=== PATIENT | male | born 1970 | race Caucasian/White ===

== ENCOUNTER → 2017-04-10 12:02 | Outpatient (CLI) | payer BC, SELFPAY ==
[2017-04-10 14:27] LABS: Absolute Lymphocyte Count 1.49 X10^3/ul (0.83-4.51); Absolute Neutrophil Count 3.4 X10^3/uL (2.0-7.7); Basophil# 0.01 X10^3/uL; Basophil% 0.2 % (0-1); Eosinophils% 1.8 % (0-5); Hematocrit 51.1 % (40-54); Hemoglobin 17.1 g/dl (13.0-16.5); Lymphocyte # 1.49 X10^3/ul (4.0); Lymphocyte % 27.5 % (19-41); Mean Corp Hgb Conc 33.5 g/gl (32-36); Mean Corpuscular Hgb 32.9 pg (27.0-32.0); Mean Corpuscular Volume 98.5 fL (80-94); Mean Platelet Vol. 9.3 fl (6.2-12.0); Monocyte# 0.44 X10^3/uL; Monocyte% 8.1 % (0-10); Neutrophil # 3.36 X10^3/uL (2.7-7.7); Platelet Count 287 K/mm3 (150-450); RBC Distribution Width CV 12.5 % (11.6-14.6); RBC Distribution Width SD 45.4 fl (35.1-43.9); Red Blood Count 5.19 M/mm3 (4.6-6.2); White Blood Count 5.4 K/mm3 (4.4-11.0)
[2017-04-10 14:32] LABS: POSITIVE COUNT NO; POSITIVE DIFFERENTIAL NO; POSITIVE MORPHOLOGY NO
[2017-04-10 14:38] LABS: ALB/GLOB Ratio 1.1 RATIO (0.9-2.4); AST(SGOT) 21 U/L (15-37); Alanine Aminotransfer ALT/SGPT 47 U/L (16-61); Alkaline Phosphatase 89 U/L (45-117); Anion Gap 7 (5-15); BUN 15 mg/dL (7-18); BUN/Creat Ratio 17.3 RATIO (10-20); Calcium,Total 9.4 mg/dL (8.5-10.1); Chloride 101 mmol/L (98-107); Creatinine, Serum 0.87 mg/dL (0.70-1.30); EST Glomerular Filtration Rate 100 mL/min (>60); Est Glom Filt Rate - Afr Amer 121 mL/min (>60); Globulin 3.8 g/dL (2.2-4.2); Glucose 98 mg/dL (74-106); Potassium 3.8 mmol/L (3.5-5.1); Protein, Total 7.8 g/dL (6.4-8.2); Sodium Level 138 mmol/L (136-145)
[2017-04-10 14:49] LABS: Erythrocyte Sedimentation Rate 9 mm/hr (0-15)
[2017-04-14 11:54] LABS: V-Zoster Virus Acute IgM < 0.91 index (0.00-0.90)
== END ==
PROVIDERS: Family Provider Family Medicine; PCP Family Medicine; Visit Provider Dermatology Pediatric Dermatology
DX: L90.5 Scar conditions and fibrosis of skin (principal); L98.8 Other specified disorders of the skin and subcutaneous tissue; B01.9 Varicella without complication; R52 Pain, unspecified; L73.2 Hidradenitis suppurativa
CPT/HCPCS: 36415; 80053; 85025; 85652; 86038; 86787

== ENCOUNTER → 2017-09-14 13:54 | Outpatient (CLI) | payer BC, SELFPAY ==
--- NOTE | 2017-09-14 14:05 | RAD_ITS ---
STUDY: X-RAY - ABDOMEN/PELVIS REASON FOR EXAM: Male, 46 years old. checking for stones patient in pain history of stones about 3 years ago and had removed TECHNIQUE: Two AP supine views of the abdomen and pelvis. COMPARISON: CT May 30, 2015 FINDINGS: There is an unremarkable bowel gas pattern. There is no demonstrated free abdominal air. The visualized liver, spleen and kidneys are grossly normal in size and morphology. Normal soft tissue structures. Normal visualized osseous structures. RAD/Abdomen Single View IMPRESSION: No renal stone is demonstrated. Electronically Signed: Sarah Hill MD at 11:54 EDT , Service support ,
== END ==
PROVIDERS: Family Provider Family Medicine; PCP Family Medicine; Visit Provider Urology
DX: Z87.442 Personal history of urinary calculi (principal)
CPT/HCPCS: 74018

== ENCOUNTER → 2018-08-30 07:51 | Outpatient (CLI) | payer BC, SELFPAY ==
--- NOTE | 2018-08-30 08:02 | MRI_ITS ---
STUDY: MRI RIGHT KNEE REASON FOR EXAM: Swelling, knee popped, history of ACL repair. TECHNIQUE: Standardized fat and water weighted pulse sequences were obtained in all 3 orthogonal planes. COMPARISON: Radiographs 10/24/2016. FINDINGS: There is attrition of the free margin of the posterior horn of the medial meniscus suggestive of partial medial meniscectomy with irregularity of the free margin (series 4 images 16, 17; proton density sagittal images 27, 28) suggestive of recurrent medial meniscal tear. There is also a complex signal alteration of the body of the medial meniscus (proton density coronal images 13, 14) suggestive of recurrent medial meniscal tear since this is separate from the partial meniscectomy site. Normal hyaline cartilage of the medial femorotibial compartment. Normal medial femoral condyle and tibial plateau. Normal medial collateral ligamentous complex (MCL). Normal distal semimembranosus, gracilis and semitendinosus tendons. Normal lateral meniscus. Normal hyaline cartilage of the lateral femorotibial compartment. Normal lateral femoral condyle and tibial plateau. Normal proximal tibiofibular articulation. Normal lateral collateral (fibular) ligament. Normal popliteus tendon. Normal biceps femoris tendon. The anterior cruciate ligament graft is intact (series 6 image 13). Normal posterior cruciate ligament (PCL). Normal congruent patellofemoral articulation. Normal hyaline cartilage of the patellofemoral compartment. Normal medial and lateral patellar retinaculum. Normal quadriceps tendon. There are postoperative changes of the patellar tendon. There is postoperative scarring in Hoffa's fat pad. There is a small joint effusion. There is a mildly thickened medial patellar plica (series 4 images 17, 18). There is a small popliteal cyst (series 4 images 16, 17). There is mild edema in the subcutis adipose space. There are postoperative changes in the distal femur and proximal tibia from anterior cruciate ligament reconstruction. MRI/Lower Ext Joint Only (Routine) IMPRESSION: Partial medial meniscectomy with recurrent medial meniscal tear. Intact anterior cruciate ligament graft. Small joint effusion. Small popliteal cyst. Mildly thickened medial patellar plica. Electronically Signed: Gelacio Che MD at 9:44 EDT Tel , Service support ,
== END ==
PROVIDERS: Family Provider Family Medicine; PCP Family Medicine; Referring Provider Physician Assistant; Visit Provider Physician Assistant
DX: M17.11 Unilateral primary osteoarthritis, right knee (principal)
CPT/HCPCS: 73721

== ENCOUNTER 2019-04-25 13:25 | Emergency (ER) | payer BC, SELFPAY ==
[2019-04-25 13:25] VITALS: BP 150/103; PULSE 118; RESP 20; TEMP 36.2; O2SAT 96; BMI 34.2
[2019-04-25 13:27] VITALS: BP 150/103; PULSE 118; RESP 20; TEMP 36.2; O2SAT 96
[2019-04-25 13:34] VITALS: O2SAT 97
--- NOTE | 2019-04-25 13:35 | RAD_ITS ---
STUDY: X-RAY CHEST REASON FOR EXAM: Male, 48 years old. Cough, shortness of breath, difficulty breathing TECHNIQUE: PA and lateral views of the chest. COMPARISON: None. FINDINGS: EKG electrodes are seen. There is a mild degree of vascular congestion with increased interstitial markings. Blunting of both costophrenic angles worse on the right side. This is suggestive of a mild CHF. There is mild cardiac enlargement. Normal mediastinum and karen. Normal visualized pulmonary arteries. Normal visualized aortic arch and descending thoracic aorta. Normal visualized thoracic spine. Normal visualized ribs, clavicles, and shoulders. There is no demonstrated abnormality of the visualized soft tissue structures of the upper abdomen. RAD/Chest PA and Lateral IMPRESSION: Mouth cardiomegaly with findings suggestive of mild degree of CHF. Electronically Signed: Radu Gilbert, at 14:17 EDT , Service support ,
--- NOTE | 2019-04-25 13:37 | ED.DCSUM_ITS ---
History of Present Illness Chief Complaint: Cough Informant: Patient, Significant Other Onset: Weeks Context: Sudden Onset Timing: Continuous Quality: Cough, shortness of breath and wheezing Location: upper respiratory Current Severity: Mild Maximum Severity: Moderate Worsened by: Activity and coughing Relieved by: Nothing Associated Symptoms: Nasal congestion, postnasal drainage malaise Narrative: Patient is a 48-year-old male with no significant past medical history who presents with upper respiratory victims that started 1 week ago. He denies fever. Does complain of congestion with postnasal drainage and nonproductive cough. He reports shortness of breath worse with activity and wheezing. He has no history of asthma. He quit smoking 2 years ago. He has no other complaints. He denies any ill contacts. Prior similar symptoms: No Recent Illness/Hospitalization: No - Past Medical History (1) No significant past medical history Status: Acute Past Medical History - Allergies and Home Meds Allergies/Adverse Reactions: Allergies No Known Allergies Allergy (Verified 04/25/19 13:27) Primary Care Physician: Lashell Diallo [Primary Care Provider] - Prior records reviewed: Yes Surgical History: no surgical history Lives: Spouse/ Significant Other, With Family Smoking Status: Former smoker Alcohol: None Drugs: None Review of Systems General: Reports: Malaise. Denies: Chills, Fever, Subjective, Sweats Eyes: Denies: Visual changes - bilaterally, Blurred Vision - bilaterally ENT: Reports: Rhinorrhea. Denies: Sore throat Cardiovascular: Reports: Chest pain - Pain with coughing. Denies: Palpitations Respiratory: Reports: Dyspnea, Cough, Dyspnea on exertion. Denies: Sputum, Orthopnea, Paroxysmal nocturnal dyspnea Gastrointestinal: Denies: Abdominal pain, Nausea, Vomiting, Diarrhea, Melena, Hematochezia Genitourinary: Denies: Dysuria, Hematuria, Frequency Musculoskeletal: Denies: Myalgias, Arthralgias, Neck pain, Back pain, Swelling, Extremity Pain, -, - Neurological: Denies: Headache, Weakness, Numbness Hematologic: Denies: Easy bruising, Easy bleeding Physical Exam Vital Signs/Narrative: Vital Signs Temp Pulse Resp BP Pulse Ox 04/25/19 13:27 97.2 F L 118 H 20 H 150/103 H 96 04/25/19 13:25 97.2 F L 118 H 20 H 150/103 H 96 Inital Vital Signs reviewed: Yes General: Well nourished, Well developed, No Acute Distress Head: Normocephalic, Atraumatic Eyes: Perrl, EOMI. Negative for: Pale conjunctiva, Scleral icterus ENT: Moist mucous membranes, No rhinorrhea Neck: Supple, Nontender, No lymphadenopathy, No JVD Cardiovascular: Regular rhythm, No murmurs, Normal S1, Normal S2, Tachycardia Respiratory: Chest nontender, Wheezing, Decreased Air Movement. Negative for: No distress, CTA bilaterally, Retractions Abdomen: Soft, Nontender, Nondistended, Normal bowel sounds Back: Nontender, Normal Inspection Extremities: Nontender, No edema Skin: Normal color, No rash, No Trauma. Negative for: Cyanosis, Diaphoresis, Jaundice Neurological: Alert, Oriented x3, Cranial nerves II-XII grossly intact, Normal Strength, Normal Sensation Psychological: Normal affect, Normal Mood Diagnostic/Tx/Re-eval Chest X-Ray - ED: 2 View, Read by ED Physician, Normal, Heart, Mediastinum, Bony Structures, No Acute Disease, Chronic Changes, - - There is slight increased markings right side compared to left. Cardiac silhouette is normal. Cardiac size is normal. 04/25/19 13:35 Chest PA and Lateral [RAD] Stat 04/25/19 13:41 Mucosa - Nose Influenza Types A,B Direct FA (JOHN) - Final Laboratory Results 04/25/19 04/25/19 13:47 13:47 WBC 5.6 RBC 5.19 Hgb 16.6 H Hct 51.1 MCV 98.5 H MCH 32.0 MCHC 32.5 RDW Std Deviation 43.9 RDW Coeff of Joi 12.1 Plt Count 252 MPV 9.1 Immature Gran % (Auto) 0.400 Neut % (Auto) 65.9 Lymph % (Auto) 25.5 [place] % (Auto) 6.6 Eos % (Auto) 1.4 Baso % (Auto) 0.2 Absolute Neuts (auto) 3.7 Absolute Lymphs (auto) 1.43 Nucleated RBC % 0 Sodium 140 Potassium 4.5 Chloride 108 H Carbon Dioxide 27.0 Anion Gap 5 BUN 22 H Creatinine 0.99 Estim Creat Clear Calc 84.39 Est GFR (MDRD) Af Amer 104 Est GFR (MDRD) Non-Af 86 BUN/Creatinine Ratio 22.3 H Glucose 151 H Calcium 8.9 - Medical Decision Making Patient presents with respiratory symptoms started 1 week ago. He appears tachypneic is tachycardic. He is not hypoxic. Chest x-ray was obtained to assess for pneumonia. Since he is wheezing he was treated albuterol and prednisone. He has symptoms consistent with viral infection. Influenza screen was obtained. There is no risk or concern for COVID-19 Patient was reassessed at 1415. He is no longer wheezing. Heart rate is improved. He reports feeling better. ED Disposition - Plan for ED Patient: Disposition: Home or Assisted Living Diagnosis: Acute bronchospasm due to viral infection Instructions: BRONCHITIS with Wheezing (Adult) Prescriptions: Prednisone [Deltasone] 40 mg PO DAILY #10 tab Prescription Printed Albuterol Inhaler [Ventolin Hfa] 2 puff INHALATION Q4H PRN PRN #1 inhaler PRN Reason: Wheezing Prescription Printed Referrals: Lashell Diallo [Primary Care Provider] - 1 Week if not improving
[2019-04-25] MEDS: predniSONE 20 MG Tablet 60 MG PO (13:43)
[2019-04-25] MEDS: Albuterol 2.5 MG/3 ML VIAL.NEB. INHALATION ×3 (13:43→14:34)
[2019-04-25 13:57] LABS: Absolute Lymphocyte Count 1.43 X10^3/uL (0.83-4.51); Absolute Neutrophil Count 3.7 X10^3/uL (2.0-7.7); Basophil# 0.01 X10^3/uL; Basophil% 0.2 % (0-1); Eosinophil# 0.08 X10^3/uL; Eosinophils% 1.4 % (0-5); Hematocrit 51.1 % (40-54); Hemoglobin 16.6 g/dL (13.0-16.5); Lymphocyte # 1.43 X10^3/ul (4.0); Lymphocyte % 25.5 % (19-41); Mean Corp Hgb Conc 32.5 g/dL (32-36); Mean Corpuscular Volume 98.5 fL (80-94); Mean Platelet Vol. 9.1 fl (6.2-12.0); Monocyte# 0.37 X10^3/uL; Monocyte% 6.6 % (0-10); NRBC Flagged by Analyzer 0 % (0-5); Neutrophil # 3.69 X10^3/uL (2.7-7.7); Neutrophil % 65.9 % (47-70); Platelet Count 252 K/mm3 (150-450); RBC Distribution Width CV 12.1 % (11.6-14.6); RBC Distribution Width SD 43.9 fl (35.1-43.9); Red Blood Count 5.19 M/mm3 (4.6-6.2); White Blood Count 5.6 K/mm3 (4.4-11.0)
[2019-04-25 14:04] LABS: Anion Gap 5 (5-15); BUN 22 mg/dL (7-18); BUN/Creat Ratio 22.3 RATIO (10-20); Calcium,Total 8.9 mg/dL (8.5-10.1); Chloride 108 mmol/L (98-107); Creatinine, Serum 0.99 mg/dL (0.70-1.30); EST Glomerular Filtration Rate 86 mL/min (>60); Est Glom Filt Rate - Afr Amer 104 mL/min (>60); Estimated Creatinine Clearance 84.39 ml/min; Glucose 151 mg/dL (74-106); Potassium 4.5 mmol/L (3.5-5.1); Sodium Level 140 mmol/L (136-145)
[2019-04-25 14:12] VITALS: PULSE 120; RESP 20; O2SAT 97
[2019-04-25 14:36] VITALS: BP 131/93; PULSE 108; RESP 13; O2SAT 98
== END 2019-04-25 14:46 | disposition home or self-care (01) ==
PROVIDERS: Internal Medicine Cardiovascular Disease; Emergency Provider Emergency Medicine; PCP Family Medicine
DX: J98.01 Acute bronchospasm (principal); B34.9 Viral infection, unspecified; R00.0 Tachycardia, unspecified; R06.82 Tachypnea, not elsewhere classified; R05 Cough; R09.81 Nasal congestion; Z79.899 Other long term (current) drug therapy; Z87.891 Personal history of nicotine dependence
CPT/HCPCS: 71046; 80048; 83880; 85025; 87804; 94640; 99251; 99285; A4216; G0463

== ENCOUNTER → 2019-05-02 07:49 | Outpatient (CLI) | payer BC, SELFPAY ==
[2019-04-25 13:25] VITALS: BMI 34.2
--- NOTE | 2019-05-02 07:52 | ECHOD_ITS ---
Reason For Study: CHF Procedure This was a 2D Doppler, Color Flow transthoracic echocardiogram. Exam performed in department. Dr Dangelo notified of low EF. Left Ventricle Severely dilated left ventricle. The estimated ejection fraction is 12 %. Stage 3 diastolic dysfunction. There is severe global hypokinesis of the left ventricle. Right Ventricle Normal RV size. Normal systolic function. Atria The left atrium is moderately enlarged. Normal right atrium. Mitral Valve Normal mitral valve. Mild (1+) eccentric mitral valve insufficiency. Tricuspid Valve Normal tricuspid valve. Mild tricuspid valve insufficiency. Pulmonary artery systolic pressure is 53 mmHg. Moderate pulmonary hypertension. Aortic Valve Normal aortic valve. Trisinus/trileaflet aortic valve. Pulmonic Valve Normal pulmonic valve. Great Vessels Normal aortic root. The pulmonary artery is normal size. Normal inferior vena cava. Pericardium/Pleural No pericardial effusion. MMode/2D Measurements & Calculations LVIDd: 6.8 cm IVSd: 1.1 cm Ao root diam: 2.9 cm LVIDs: 6.3 cm LVPWd: 1.3 cm RVDd: 3.9 cm FS: 6.8 % LAV(MOD-bp): 84.2 ml EDV(MOD-sp4): 210.4 ml EDV(MOD-sp2): 196.7 ml LAV(MOD-bp) Indexed: 40.4 ml/m2 ESV(MOD-sp4): 165.0 ml EF(MOD-sp2): 2.0 % LAV(MOD-sp2): 79.3 ml EF(MOD-sp4): 21.6 % LAV(MOD-sp4): 86.5 ml SV(MOD-sp4): 45.4 ml SV(MOD-sp2): 4.0 ml LA A4 area: 24.9 cm2 LA dimension(2D): 4.6 cm RA A4 area: 16.8 cm2 Doppler Measurements & Calculations MV E max wes: 118.6 cm/sec Ao V2 max: 98.9 cm/sec LV V1 max: 61.2 cm/sec MV A max wes: 40.7 cm/sec Ao max P.9 mmHg LV V1 max P.5 mmHg MV E/A: 2.9 MR max wes: 461.5 cm/sec PA V2 max: 79.4 cm/sec TR max wes: 340.6 cm/sec MR max P.2 mmHg TR max P.2 mmHg Interpretation Summary Severely dilated left ventricle. The estimated ejection fraction is 12 %. Stage 3 diastolic dysfunction. Pulmonary artery systolic pressure is 53 mmHg. Moderate pulmonary hypertension. Ordering Physician: Dennis Dangelo Referring Physician: Lashell Diallo Performed By: Joanna Sanchez RDCS, RVT
== END ==
PROVIDERS: PCP Family Medicine; Referring Provider Internal Medicine Cardiovascular Disease; Visit Provider Internal Medicine Cardiovascular Disease
DX: I50.9 Heart failure, unspecified (principal); I27.20 Pulmonary hypertension, unspecified
CPT/HCPCS: 93306

== ENCOUNTER → 2019-05-10 15:45 | Outpatient (CLI) | payer BC, SELFPAY ==
[2019-05-03 13:41] VITALS: BMI 33.3
== END ==
PROVIDERS: PCP Family Medicine; Visit Provider Internal Medicine Cardiovascular Disease
DX: Z03.818 Encounter for observation for suspected exposure to other biological agents ruled out (principal); R06.02 Shortness of breath; R07.9 Chest pain, unspecified
CPT/HCPCS: 87633; 87635; U0004

== ENCOUNTER → 2019-06-29 11:44 | Outpatient (CLI) | payer BC, SELFPAY ==
[2019-06-29 10:51] VITALS: BMI 34.2
[2019-06-29 12:31] LABS: Absolute Lymphocyte Count 1.51 X10^3/uL (0.83-4.51); Absolute Neutrophil Count 2.7 X10^3/uL (2.0-7.7); Basophil# 0.02 X10^3/uL; Basophil% 0.4 % (0-1); Eosinophil# 0.11 X10^3/uL; Eosinophils% 2.2 % (0-5); Hematocrit 48.1 % (40-54); Hemoglobin 15.8 g/dL (13.0-16.5); Lymphocyte # 1.51 X10^3/ul (4.0); Lymphocyte % 30.8 % (19-41); Mean Corp Hgb Conc 32.8 g/dL (32-36); Mean Corpuscular Hgb 31.9 pg (27.0-32.0); Mean Corpuscular Volume 97.2 fL (80-94); Mean Platelet Vol. 9.3 fl (6.2-12.0); Monocyte% 10.2 % (0-10); NRBC Flagged by Analyzer 0 % (0-5); Neutrophil # 2.73 X10^3/uL (2.7-7.7); Neutrophil % 55.8 % (47-70); Platelet Count 293 K/mm3 (150-450); RBC Distribution Width CV 11.8 % (11.6-14.6); Red Blood Count 4.95 M/mm3 (4.6-6.2); White Blood Count 4.9 K/mm3 (4.4-11.0)
[2019-06-29 12:51] LABS: Anion Gap 4 (5-15); BUN 16 mg/dL (7-18); BUN/Creat Ratio 14.7 RATIO (10-20); Calcium,Total 9.1 mg/dL (8.5-10.1); Chloride 103 mmol/L (98-107); Creatinine, Serum 1.09 mg/dL (0.70-1.30); EST Glomerular Filtration Rate 76 mL/min (>60); Est Glom Filt Rate - Afr Amer 92 mL/min (>60); Glucose 121 mg/dL (74-106); Potassium 4.4 mmol/L (3.5-5.1); Sodium Level 138 mmol/L (136-145)
== END ==
PROVIDERS: PCP Family Medicine; Referring Provider Nurse Practitioner Family; Visit Provider Nurse Practitioner Family
DX: I50.42 Chronic combined systolic (congestive) and diastolic (congestive) heart failure (principal); I27.21 Secondary pulmonary arterial hypertension; R61 Generalized hyperhidrosis; R63.1 Polydipsia
CPT/HCPCS: 36415; 80048; 83036; 85025

== ENCOUNTER 2019-06-30 07:08 | Day surgery (SDC) | payer BC, SELFPAY ==
[2019-06-23 11:01] VITALS: BMI 34.2
--- NOTE | 2019-06-29 10:10 | HP.PCM_ITS ---
History and Physical Date of Admission: 06/30/19 Details: This is a pleasant 48-year-old man with a history of hypertension who presented to the Emergency Room in April 2019 with shortness of breath. He was thought to have a possible viral syndrome. His blood pressure was noted to be elevated he was seen by the ER physician and was discharged. He was noted to be tachycardic. His called the office a few days later and said that he was not getting any better and was concerned about his heart. A natruretic peptide level was ordered which was noted to be over 500. He was placed on Lasix as well as losartan and he said that his condition improved remarkably. An echocardiogram was also obtained which demonstrated an ejection fraction of 12% with severe global hypokinesis and pulmonary systolic pressure of 53 mm of my. He states since April 2019 he has had frequent episodes waking in the middle of the night with left sided chest pain and left arm numbness. This resolves on its own or with sitting up or walking around the house. This lasts for about 20 minutes. He denies associated symptom of waking gasping for air. He denies chest pain during the day. He states he stopped smoking recently and denied such symptoms prior when smoking. He questions if is nightly symptoms are related to new medications or smoking cessation. He expresses concerns in regards to erectile dysfunction since beginning current medications. He denies SOB at rest or with activity. He states increase diaphoresis throughout the day. This has been ongoing since April 2019 and may be worsening. Home blood pressure have been 120s/70s. His activity level and energy level has been stable and has not worsened. He acknowledges excessive thirst. He denies symptoms of palpitations, lightheadedness, dizziness, near syncope, or syncopal episodes. He denies edema or claudication issues. He denies orthopnea, PND, fever, chills, chronic cough, blood in urine, blood in stool, myalgia, or unexplainable fatigue. He presents today for [facility] to assess symptoms and reduced ejection fraction. 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: No Accompanied by: none Is patient in pain?: No Allergies No Known Allergies Allergy (Verified 06/23/19 11:01) Medications See EMR [facility] Medical History (Updated 05/10/19 @ 08:42 by Lacy Kilner) Chronic combined systolic and diastolic CHF (congestive heart failure) (Chronic) Secondary pulmonary arterial hypertension (Chronic) Anxiety and depression (Chronic) History of kidney stones (Chronic) History of seizure (Resolved) Surgical History History of lithotripsy (Resolved) History of repair of ACL (Resolved) History of ureter stent (Resolved) Social History (Updated 06/27/19 @ 16:20 by Fernando Hilton NP-C) Smoking Status: Former smoker pack-years: 15 how long ago did patient quit smokin week ago alcohol intake: current alcohol intake frequency: a few times a week substance use type: does not use caffeine: Yes Type: carbonated beverages Number of servings: 2, coffee Number of servings: 1 ROS Const Const: Positive for excessive sweating; negative for fatigue, weakness, body ache, fever(s) or chills ENT ENT: Negative for dizziness Cardio Chest Pain: Yes Palpitations: No Edema: None Muscle aches with walking: None Resp Respiratory: Negative for SOB with activity, SOB at rest, SOB orthopnea\SOB lying down or paroxysmal nocturnal dyspnea GI GI: Positive for other (Excessive thirst); negative nausea, vomiting blood/hematemesis, bright, red blood in stools or black,tarry stools : Positive for erectile dysfunction; negative for hematuria or frequent nighttime urination/ nocturia Musc Musc: Negative for muscle aches/ myalgia Skin Skin: Negative non-healing lesions or rash Neuro Neuro: Negative for dizziness, lightheadedness, near syncope, syncope, orthostatic symptoms or weakness Endo Endo: Positive for excessive sweating; negative for fatigue Allergy Allergy/Immunology: Negative for rash Cardiology Exam Const Appearance: cooperative, healthy appearing, comfortable and no acute distress Nutritional Appearance: well nourished and obese Orientation: alert, awake and oriented x3 Head Head: normal to inspection Ears: hearing grossly normal bilaterally Nose: external nose normal Face and Sinus: face symmetric Mouth: oral mucosae normal Eyes General: appearance normal, both eyes and all related structures Eyelids: eyelids normal EOM: EOM intact bilaterally Neck Neck: normal visual inspection and no JVD Carotids: normal carotid upstroke Chest Chest inspection: normal inspection of the chest, symmetric chest movement and normal respiratory effort; negative cough Auscultation: Bilateral: Clear to Auscultation Cardio Rate: regular rate Rhythm: regular rhythm Heart sounds: S1 normal and S2 normal; negative rub, gallop or murmur GI GI: normal to inspection and obese Neuro General: alert, awake, oriented x3 and CN's II-XI intact bilaterally Skin Skin: no rashes or lesions noted Extremities Pulses: Normal: Right Posterior Tibial Pulse, Left Posterior Tibial Pulse, Right Radial Pulse, Left Radial Pulse Lower Extremity Edema: None: Bilateral Psych Psychological: normal affect Assessment & Plan 1. Chest pain, unspecified type R07.9 Plan This is patient's main concern. His chest pain appears atypical in that it only occurs in the middle the night. He denies such symptoms during the day when he is exerting himself. The exact etiology remains unclear. Possible etiologies include coronary artery disease, GERD, gallbladder disease, or other. He will undergo laboratory evaluation to help assess. His EKG in office recently showed sinus rhythm at a rate of 90 bpm QTC of 432. There were no acute ST or T wave changes noted. He was started on Nexium therapy to assist with possible GERD component. He will proceed with left heart catheterization to assess coronary artery disease component. Based on results, further recommendation be made. 2. Chronic combined systolic and diastolic CHF (congestive heart failure) I50.42 Plan Patient does acknowledge improvement in shortness of breath since beginning medications. He appears to be in [place] Heart Association functional class I with ACC/AHA stage C. Possible etiologies include coronary artery disease, hypertension, viral, or other. His heart rate appears well controlled since beginning Coreg therapy. He will continue with carvedilol, losartan, and Lasix. He will keep his July 2019 appointment to evaluate symptoms. At that time, we will consider an echocardiogram to evaluate changes in ejection fraction after 3 months of medical therapy. Based on such results and symptoms, will consider changing losartan to Entresto as tolerated and as indicated as well as preventative AICD if ejection fraction remains 35% or below in conjunction with the results of heart catheterization. 3. Secondary pulmonary arterial hypertension I27.21 Plan His echocardiogram showed an RVSP of 53 mmHg, moderate pulmonary hypertension. At this time, he will continue current medical therapy which includes losartan, carvedilol, and Lasix. This will be reassessed with an echocardiogram in the near future. 4. Polydipsia R63.1 Plan Because of this, intermittent diaphoresis, and risk factors for coronary artery disease, he will undergo a hemoglobin A1c to ensure that this is not a diabetic component. This may also help guide consideration for statin medication along with results of heart catheterization. Based on results, further recommendation will be made. Thank you for allowing us to participate in the patients plan of care, if you have any questions please do not hesitate to call. This note was generated using a voice recognition system and there may be incorrect words, spelling or punctuation that were not noted when reviewing the office note prior to saving.
[2019-06-29 10:51] VITALS: BMI 34.2
--- NOTE | 2019-06-30 09:21 | CL.D_ITS ---
Patient Name: TAMMY WALTERS Study Date: 06/30/2019 Performing: Dennis Dangelo MD Ht: 67 inches 170 cm : 1970 Wt: 218.5 lbs 99 kg Age: 48 Gender: male BSA: 2.1 PROCEDURE(S) PERFORMED [id number] CLINICAL PROFILE AND INDICATIONS Indications: Cardiomyopathy Heart Failure: NYHA Class: 2, Newly Diagnosed: Yes, Heart Failure Type: Systolic Stress/Imaging Stress/Image Study Performed: No CAD Presentations: Symptom unlikely to be ischemic. CONCLUSIONS Normal coronary arteries Cardiomyopathy: Dilated RECOMMENDATIONS Medical therapy DESCRIPTION OF PROCEDURE The patient arrived to the procedure lab. The risks and benefits of the procedure as well as a full d escription of our services here and current unavailability of surgical backup were fully explained to the patient and/or their significant other prior to the catheterization. The Timeout was completed, verifying the correct patient and procedure. The patient's procedural site was prepped and draped in the usual fashion. Local anesthetic was given subcutaneously to right radial region with Lidocaine 2% . Local anesthetic was given subcutaneously to right groin region with Lidocaine 2%. Using a modified Seldinger technique, arterial access was obtained via the right femoral artery, a 5Fr sheath was ins erted. Left Coronary Artery selective angiography was performed in multiple views using a 5 Fr. JL4 catheter. Right Coronary Artery selective angiography was then performed in multiple views using a 5 Fr. 3DRC (Venancio) catheter. Left Ventriculography was performed in SANCHEZ projection using a 5 Fr. Pigtail catheter. LV to AO pullback pressures were then recorded.Contrast was injected throug h the sheath and the Right Iliac and Femoral artery were assessed for possible closure device.The art erial sheath was pulled and a Mynx closure device was deployed for hemostasis CORONARY ANGIOGRAPHY DOMINANCE: Right Dominant LEFT HEART ASSESSMENT Left Ventricular Ejection Fraction: by LV Gram 15 % Global Hypokinesis - Severe Depressed Left Ventricular systolic function LEFT MAIN: Angiographically normal LEFT ANTERIOR DESCENDING ARTERY: No significant disease noted CIRCUMFLEX ARTERY: Angiographically normal RIGHT CORONARY ARTERY: No significant disease noted COMPLICATIONS No Complications PROCEDURE MEDICATIONS Versed 1 mg IV Fentanyl 50 mcg IV Fentanyl 25 mcg IV Versed 1 mg IV Versed 1 mg IV Oxygen: 2 L/min via nasal cannula SUMMARY OF HEMODYNAMIC DATA Time AIR REST ECG 07:37:45 AO 111/81 (95) SA 08:58:21 LV 116/26, 42 09:03:32 LV 113/28, 38 09:03:39 LVp 96/19, 28 09:04:45 AOp 100/20 (57) 09:04:50 LV 101/22, 33 09:05:00 LVp 101/20, 34 09:05:04 AOp 104/71 (86) 09:05:09 Signed By Dennis Dangelo MD On 06/30/2019 9:21:05 AM Dennis Dangelo MD
== END 2019-06-30 12:30 | disposition home or self-care (01) ==
LOC: CLSP 07:11
PROVIDERS: PCP Family Medicine; Referring Provider Internal Medicine Cardiovascular Disease; Visit Provider Internal Medicine Cardiovascular Disease
DX: I42.0 Dilated cardiomyopathy (principal); I11.0 Hypertensive heart disease with heart failure; I50.42 Chronic combined systolic (congestive) and diastolic (congestive) heart failure; I27.21 Secondary pulmonary arterial hypertension; R63.1 Polydipsia; F32.9 Major depressive disorder, single episode, unspecified; F41.9 Anxiety disorder, unspecified; Z79.899 Other long term (current) drug therapy; Z87.442 Personal history of urinary calculi; Z87.891 Personal history of nicotine dependence
CPT/HCPCS: 93458; 99152; 99153; C1760; J7040; Q9967; C1769; C1894

== ENCOUNTER → 2019-08-01 10:57 | Outpatient (CLI) | payer BC, SELFPAY ==
[2019-06-29 10:51] VITALS: BMI 34.2
[2019-08-01 13:56] LABS: AST(SGOT) 18 U/L (15-37); Alanine Aminotransfer ALT/SGPT 34 U/L (16-61); Albumin, Serum 3.9 g/dL (3.2-5.0); Alkaline Phosphatase 72 U/L (45-117); Cholesterol 199 mg/dL (200); Globulin 3.8 g/dL (2.2-4.2); High Density Lipoprotein 60 mg/dL; Protein, Total 7.7 g/dL (6.4-8.2); Triglycerides 100 mg/dL; Very Low Density Lipoprotein 20 mg/dL (5-40)
== END ==
PROVIDERS: Nurse Practitioner Family; PCP Family Medicine; Referring Provider Internal Medicine Cardiovascular Disease; Visit Provider Internal Medicine Cardiovascular Disease
DX: I50.42 Chronic combined systolic (congestive) and diastolic (congestive) heart failure (principal); I42.8 Other cardiomyopathies; I27.21 Secondary pulmonary arterial hypertension
CPT/HCPCS: 36415; 80061; 80076; 93306; Q9957; A4216

== ENCOUNTER → 2019-08-18 11:59 | Outpatient (CLI) | payer BC, SELFPAY ==
[2019-06-29 10:51] VITALS: BMI 34.2
[2019-08-18 13:37] LABS: Anion Gap 6 (5-15); BUN 23 mg/dL (7-18); BUN/Creat Ratio 25.4 RATIO (10-20); Calcium,Total 8.9 mg/dL (8.5-10.1); Chloride 106 mmol/L (98-107); Creatinine, Serum 0.91 mg/dL (0.70-1.30); EST Glomerular Filtration Rate 94 mL/min (>60); Est Glom Filt Rate - Afr Amer 114 mL/min (>60); Ferritin 179 ng/mL (26-388); Glucose 128 mg/dL (74-106); Potassium 4.4 mmol/L (3.5-5.1); Sodium Level 139 mmol/L (136-145)
== END ==
PROVIDERS: PCP Family Medicine
DX: I50.9 Heart failure, unspecified (principal); I27.0 Primary pulmonary hypertension
CPT/HCPCS: 36415; 80048; 82728; 84443

== ENCOUNTER → 2019-10-24 11:00 | Outpatient (CLI) | payer BC, SELFPAY ==
[2019-06-29 10:51] VITALS: BMI 34.2
--- NOTE | 2019-10-24 11:25 | ECHOCS_ITS ---
Reason For Study: Non-Ischemic CM Procedure This was a 2D Doppler, Color Flow transthoracic echocardiogram. Myocardial strain analysis was performed in this exam to aid in the assessment of cardiac function. Contrast injection was performed. The study was technically difficult. Exam performed in department. Left Ventricle Severely dilated left ventricle. The estimated ejection fraction is 15 %. Stage 1 diastolic dysfunction. There is severe global hypokinesis of the left ventricle. Right Ventricle Normal RV size. Normal systolic function. Atria Normal left atrium. Normal right atrium. Mitral Valve Normal mitral valve. Trivial eccentric mitral valve insufficiency. Tricuspid Valve Normal tricuspid valve. Mild tricuspid valve insufficiency. Aortic Valve Trisinus/trileaflet aortic valve. Pulmonic Valve Normal pulmonic valve. Great Vessels Normal aortic root. The pulmonary artery is normal size. Normal inferior vena cava. Pericardium/Pleural No pericardial effusion. Medication Diluted definity 4ml given slow IV push to enhance endocardial definition. MMode/2D Measurements & Calculations LVIDd: 6.8 cm IVSd: 1.0 cm Ao root diam: 3.0 cm LVIDs: 6.1 cm LVPWd: 1.0 cm RVDd: 3.8 cm FS: 10.7 % LAV(MOD-bp): 42.5 ml LA A4 area: 16.2 cm2 LA dimension(2D): 4.0 cm LAV(MOD-bp) Indexed: 20.4 ml/m2 LAV(MOD-sp2): 37.4 ml LAV(MOD-sp4): 41.3 ml RA A4 area: 10.5 cm2 Doppler Measurements & Calculations MV E max carroll: 54.4 cm/sec Lat Peak E' Carroll: 5.0 cm/sec Med Peak E' Carroll: 4.4 cm/sec MV A max carroll: 89.1 cm/sec E/E' lat: 10.8 E/E' med: 12.4 MV E/A: 0.61 Ao V2 max: 113.2 cm/sec LV V1 max: 72.5 cm/sec PA V2 max: 87.1 cm/sec Ao max P.1 mmHg LV V1 max P.1 mmHg Ao V2 mean: 84.4 cm/sec Ao mean P.0 mmHg Ao V2 VTI: 22.3 cm TR max carroll: 220.4 cm/sec TR max P.4 mmHg Interpretation Summary Severely dilated left ventricle. The estimated ejection fraction is 15 %. Stage 1 diastolic dysfunction. There is severe global hypokinesis of the left ventricle. The global longitudinal strain is severely abnormal. The global longitudinal strain = -7.8% (abnormal). Compared to prior study, there is no significant change. Ordering Physician: OLIVIAABH Referring Physician: Lashell Diallo Performed By: Roof, Leann, RDCS, RVT
[2019-10-24 12:43] LABS: Hemoglobin A1c 5.6 % (3.8-5.6)
[2019-10-24 12:54] LABS: Anion Gap 2 (5-15); BUN 22 mg/dL (7-18); BUN/Creat Ratio 22.2 RATIO (10-20); Calcium,Total 8.8 mg/dL (8.5-10.1); Chloride 104 mmol/L (98-107); Creatinine, Serum 0.99 mg/dL (0.70-1.30); EST Glomerular Filtration Rate 85 mL/min (>60); Est Glom Filt Rate - Afr Amer 103 mL/min (>60); Glucose 117 mg/dL (74-106); Potassium 4.5 mmol/L (3.5-5.1); Sodium Level 137 mmol/L (136-145)
== END ==
PROVIDERS: PCP Family Medicine
DX: I42.8 Other cardiomyopathies (principal); R73.09 Other abnormal glucose
CPT/HCPCS: 36415; 80048; 83036; 93306; Q9957; A4216; C8929

== ENCOUNTER → 2020-01-12 11:03 | Outpatient (CLI) | payer BC, SELFPAY ==
[2019-06-29 10:51] VITALS: BMI 34.2
--- NOTE | 2020-01-12 11:11 | MRI_ITS ---
STUDY: MRI CERVICAL SPINE WITHOUT CONTRAST REASON FOR EXAM: Male, 49 years old. neck pain, right arm pain/numbness TECHNIQUE: Standardized fat and water weighted pulse sequences were obtained in the sagittal and axial planes. COMPARISON: None FINDINGS: Normal foramen magnum and brainstem-cervical cord junction. Normal craniovertebral junction. Normal anterior atlantoaxial articulation. Normal odontoid process. There is straightening of the normal cervical lordosis. Normal vertebral bodies and posterior osseous elements. C2-3: Normal endplates. Normal disc height, signal and morphology. Normal central canal and intervertebral neural foramina. C3-4: Moderate broad disc osteophyte complex with a central disc protrusion produces moderate spinal stenosis with abutment central spinal cord but no neural foraminal stenosis. C4-5: Mild broad disc osteophyte complex produces mild spinal stenosis but no neural foraminal stenosis. C5-6: Moderate bilobed disc osteophyte complex produces moderate spinal stenosis with abutment of the central spinal cord and mild bilateral neural foraminal stenosis. C6-7: Mild broad disc osteophyte complex produces mild spinal stenosis and mild bilateral neural foraminal stenosis. C7-T1: Normal endplates. Normal disc height, signal and morphology. Normal central canal and intervertebral neural foramina. Normal cervical cord. There are innumerable small lymph nodes throughout the soft tissues of the neck particularly within the posterior triangles. Clinical correlation correlation with CT the neck with contrast may be useful. MRI/Spine Cervical (Routine) IMPRESSION: 1. Multilevel degenerative changes, as described above. 2. Innumerable small lymph nodes throughout the neck and clinical correlation and correlation with CT may be useful. Electronically Signed: Suraj Addison MD at 15:38 EST Tel , Service support ,
[2020-01-12 12:45] LABS: Anion Gap 5 (5-15); BUN 20 mg/dL (7-18); BUN/Creat Ratio 20.7 RATIO (10-20); Chloride 102 mmol/L (98-107); Creatinine, Serum 0.96 mg/dL (0.70-1.30); EST Glomerular Filtration Rate 88 mL/min (>60); Est Glom Filt Rate - Afr Amer 106 mL/min (>60); Glucose 134 mg/dL (74-106); Sodium Level 137 mmol/L (136-145)
== END ==
PROVIDERS: PCP Family Medicine; Referring Provider Orthopaedic Surgery; Visit Provider Orthopaedic Surgery
DX: M50.30 Other cervical disc degeneration, unspecified cervical region (principal); I27.0 Primary pulmonary hypertension; I42.8 Other cardiomyopathies
CPT/HCPCS: 36415; 72141; 80048

== ENCOUNTER 2020-01-23 14:51 | Outpatient (RCR) | payer BC, SELFPAY ==
[2019-06-29 10:51] VITALS: BMI 34.2
--- NOTE | 2020-01-23 16:31 | HP.PTEVAL ---
Patient's Visit Information TAMMY WALTERS is a 49 year old M referred to Physical Therapy by Dr. Rolly Coelho, DO with a diagnosis of CERVICAL DISC DEGENERATION ,CERVICAL SPINE. Date of Evaluation: 01/23/20 Physical Therapist: Federico Henriquez, PT, Cert MDT, OCS - Visit Plan Frequency: 2x /Week Duration: 4 Weeks Plan: PLAN TO GET PACEMAKER/DIBR. PT INTERVENTIONS CERVICAL /POSTURAL EX'S,MANUAL THERAPY CERVICAL TRACTION,ICTX 15#-22# X15MIN ,MODLATIES - Subjective This 49 y/o male presents to physical therapy with cervical pain. Patient has had cervical pain for 3weeks . Patient had inscidous onset cervical spine with parathesia/tingling right arm. Patient seen DR Coelho then referred pain management DR Love with epidural injections which helped 80%. Agraveting symptoms intermmitant flexion worse with activity lifting. Allevaiting factors epidural injection,rest. Patient was gabepetin. Patient denies MOSELEY/dizziness/nausea. Patient intially had difficulty with sleeping. Patient symptoms affects job demands and housework tasks.Patient symptoms QOL.MRI showed spurs ,stenosis ,ptoruding disc. Patient plans to pacemaker.,CHF. SOCIAL: . 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 NEURO: c/o parathesia/tingling,reflexes C5-6-7 1/3,mytome weakness C5-6. PALPATION : UNREMRKABLE. 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 MMT: RIGHT shoulder 3+/5,biceps 4-/5,triceps 4/5,wrist 4/5,left 4/5. CERVICAL ROM:flexion min loss,extension min loss,lateral flexion WFL,rotation min loss - Special Tests C/S Radiculapathy - Left Upper limb tension test: Negative C/S Radiculapathy - Right Upper limb tension test: Negative C/S Radiculapathy - Left Spurlings: Negative C/S Radiculapathy - Right Spurlings: Positive C/S Radiculapathy - Left Cervical distraction: Negative C/S Radiculapathy - Right Cervical distraction: Negative Sharp Roe: Negative Vertebral Artery Test: Negative Alar Ligament Test: Negative Cervical Sitting: Protrusion - Mechanical Response: No effect Cervical Sitting: Protrusion - Symptoms During Testing: Increases Cervical Sitting: Protrusion - Symptoms After Testing: No worse Cervical Sitting: Retraction - Mechanical Response: No effect Cervical Sitting: Retraction - Symptoms During Testing: Peripheralizing Cervical Sitting: Retraction - Symptoms After Testing: Worse Cervical Sitting: Retraction-Extension - Mechanical Response: No effect Cerv Sitting: Retraction-Extension - Symptoms During Testing: Peripheralizing Cerv Sitting: Retraction-Extension - Symptoms After Testing: Worse Cervical Sitting: Sidebend Right - Mechanical Response: No effect Cervical Sitting: Sidebend Right - Symptoms During Testing: Increases Cervical Sitting: Sidebend Right - Symptoms After Testing: No worse Cervical Sitting: Sidebend Left - Mechanical Response: No effect Cervical Sitting: Sidebend Left - Symptoms During Testing: Decreases Cervical Sitting: Sidebend Left - Symptoms After Testing: Better Cervical Sitting: Rotation Right - Mechanical Response: No effect Cervical Sitting: Rotation Right - Symptoms During Testing: Increases Cervical Sitting: Rotation Right - Symptoms After Testing: No worse Cervical Sitting: Rotation Left - Mechanical Response: No effect Cervical Sitting: Rotation Left - Symptoms During Testing: Decreases Cervical Sitting: Rotation Left - Symptoms After Testing: Better Cervical Sitting: Flexion - Mechanical Response: No effect Cervical Sitting: Flexion - Symptoms During Testing: Increases Cervical Sitting: Flexion - Symptoms After Testing: No worse - Goals Goal 1:: I with HEP Goal Time Frame: 4-6 Weeks Goal 2:: Patient to improve posture fo ADLS and job demnads Goal Time Frame: 4-6 Weeks Goal 3:: Patient to decrease pain right UE radicular symptoms by 60% vor > to imprpove function QOL. Goal Time Frame: 4-6 Weeks Goal 4:: Patient to improve cervical ROM for function of recovery. Goal Time Frame: 4-6 Weeks Goal 5:: Patient to improve neck owestry score by 5 points or> to improve QOL and function. Goal Time Frame: 4-6 Weeks - Rehabilitation Potential Physical Therapy Diagnosis: Patient has cercvical derrangement below elbow with protruding disc and stenosis with spurs with radicular smptoms in right arm with parathesia/tingling ,pain with motion to right and extension along with mytome weakness thus benifit from skilled . Patient is better with epiduaral injections Rehabilitation Potential: Good - Anticipated Interventions Patient/Client Instruction: Educate patient on: Condition, Plan of Care For the Purpose of:: To decrease pain, To increase ROM, To improve muscle performance and motor function, To improve ability to perform ADL's, To increase tolerance to activity/condition/position, To improve ability of physical actions for home/community/work/leisure, To improve health of tissue, To decrease soft tissue restriction, To increase flexibility/ROM, To reduce risk of recurrence, To improve ability to perform tasks related to life management Therapeutic Exercise to Include: Power training, Postural training, Flexibilty training, Active ROM, Suhail Exercises For the Purpose of:: To decrease pain, To increase ROM, To improve muscle performance and motor function, To increase tolerance to activity/condition/position, To improve ability of physical actions for home/community/work/leisure, To improve health of tissue, To decrease soft tissue restriction, To increase flexibility/ROM, To improve ability to perform tasks related to life management Manual Therapy Techniques to Include: Mobilization Comment: MANUAL TRACTION For the Purpose of:: To decrease pain, To increase ROM, To improve nutrient delivery to tissue, To increase oxygenation perfusion, To improve health of tissue, To decrease soft tissue restriction, To increase flexibility/ROM Cryotherapy (ice pack, ice massage): Yes Thermo therapy (hot pack): Yes Ultrasound (thermal/non thermal): Yes For the Purpose of:: To decrease pain, To increase ROM, To improve nutrient delivery to tissue, To increase oxygenation perfusion, To improve health of tissue, To decrease soft tissue restriction Thank you for the opportunity to evaluate your patient. For Medicare and Medicare HMO plans, please review the plan of care and approve it. It will need to be FAXED BACK to us at [phone] for Medicare purposes. For Medicare only, by signing this I certify the plan of care. Please let me know if there are questions or concerns regarding this plan of care. Physician Signature: Date:
== END 2020-01-23 19:00 | disposition home or self-care (01) ==
LOC: PT 14:51
PROVIDERS: PCP Family Medicine; Referring Provider Orthopaedic Surgery; Visit Provider Orthopaedic Surgery
DX: M50.30 Other cervical disc degeneration, unspecified cervical region (principal)
CPT/HCPCS: 97140; 97162

== ENCOUNTER → 2020-01-25 14:55 | Outpatient (CLI) | payer BC, SELFPAY ==
[2019-06-29 10:51] VITALS: BMI 34.2
--- NOTE | 2020-01-25 15:08 | CT_ITS ---
STUDY: CT SOFT TISSUE NECK WITH CONTRAST REASON FOR EXAM: Male, 49 years old. CERVICAL LYMPHADENOPATHY RADIATION DOSAGE (If Supplied By Facility): CTDIvol = ( 18.38 ) mGy, DLP = ( 587.74 ) mGycm TECHNIQUE: The patient was scanned in a multi-detector CT scanner. High resolution transaxial imaging was performed following intravenous administration of IV 75mL Isovue-370. Sagittal and coronal images were reconstructed. Individualized dose optimization techniques were used for this CT. COMPARISON: None. FINDINGS: Normal bilateral parotid glands. 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 Normal bilateral parapharyngeal spaces. Normal bilateral carotid spaces. Normal bilateral sublingual and submandibular glands and spaces. Normal visualized nasopharynx. Normal retropharyngeal space. Normal perivertebral space. Normal visualized bilateral faucial tonsils. The visualized tongue, tongue base and oropharynx are normal. The visualized cervical lymph nodes (levels I-) are within normal size limits, and maintain normal morphology. Some normal-sized lymph nodes bilaterally. There is no demonstrated solid or cystic mass lesion. There is no abnormal contrast enhancement. Normal epiglottis, bilateral vallecula and hypopharynx. The pre-epiglottic and paraglottic adipose spaces are normal. Normal visualized bilateral piriform sinuses, aryepiglottic folds, vocal cords, and arytenoid-cricoid articulations. Normal subglottic trachea. 1 cm nodule decreased attenuation and/or enhancement of the left lobe of the thyroid gland. Thyroid ultrasound may be useful. Normal visualized pulmonary apices. Mucous retention cyst in the right maxilla sinus consistent with chronic sinusitis. Normal visualized cervical spine. CT/Soft Tissue Neck WITH Contrast IMPRESSION: 1. Some normal-sized lymph nodes bilaterally. 2. 1 cm nodule the left lobe of the thyroid gland and correlation with ultrasound may be useful. 3. Chronic right maxillary sinusitis with mucous retention cysts. Electronically Signed: Suraj Addison MD at 16:11 EST Tel , Service support ,
[2020-01-25 15:15] LABS: Absolute Lymphocyte Count 2.14 X10^3/uL (0.83-4.51); Absolute Neutrophil Count 3.9 X10^3/uL (2.0-7.7); Basophil# 0.04 X10^3/uL; Basophil% 0.6 % (0-1); Eosinophil# 0.09 X10^3/uL; Eosinophils% 1.3 % (0-5); Hematocrit 48.1 % (40-54); Hemoglobin 15.7 g/dL (13.0-16.5); Lymphocyte # 2.14 X10^3/ul (4.0); Lymphocyte % 31.4 % (19-41); Mean Corp Hgb Conc 32.6 g/dL (32-36); Mean Corpuscular Hgb 32.4 pg (27.0-32.0); Mean Corpuscular Volume 99.4 fL (80-94); Mean Platelet Vol. 8.8 fl (6.2-12.0); Monocyte# 0.55 X10^3/uL; Monocyte% 8.1 % (0-10); NRBC Flagged by Analyzer 0 % (0-5); Neutrophil # 3.87 X10^3/uL (2.7-7.7); Neutrophil % 56.8 % (47-70); Platelet Count 337 K/mm3 (150-450); RBC Distribution Width CV 12.2 % (11.6-14.6); RBC Distribution Width SD 44.8 fl (35.1-43.9); Red Blood Count 4.84 M/mm3 (4.6-6.2); White Blood Count 6.8 K/mm3 (4.4-11.0)
== END ==
PROVIDERS: PCP Family Medicine; Referring Provider Family Medicine; Visit Provider Family Medicine
DX: R59.0 Localized enlarged lymph nodes (principal)
CPT/HCPCS: 36415; 70491; 85025; Q9967

== ENCOUNTER → 2020-01-31 15:25 | Outpatient (CLI) | payer BC, SELFPAY ==
[2019-06-29 10:51] VITALS: BMI 34.2
[2020-01-31 15:45] LABS: Hematocrit 44.1 % (40-54); Hemoglobin 14.3 g/dL (13.0-16.5); Mean Corp Hgb Conc 32.4 g/dL (32-36); Mean Corpuscular Hgb 32.3 pg (27.0-32.0); Mean Corpuscular Volume 99.5 fL (80-94); Mean Platelet Vol. 8.7 fl (6.2-12.0); Platelet Count 314 K/mm3 (150-450); RBC Distribution Width CV 11.9 % (11.6-14.6); RBC Distribution Width SD 43.8 fl (35.1-43.9); Red Blood Count 4.43 M/mm3 (4.6-6.2); White Blood Count 5.7 K/mm3 (4.4-11.0)
[2020-01-31 16:12] LABS: BNP,B-Type NATRIURETIC PEPTIDE 16.7 pg/mL (0-100)
[2020-01-31 16:17] LABS: AST(SGOT) 19 U/L (15-37); Alanine Aminotransfer ALT/SGPT 48 U/L (16-61); Alkaline Phosphatase 79 U/L (45-117); Anion Gap 2 (5-15); BUN 23 mg/dL (7-18); BUN/Creat Ratio 21.1 RATIO (10-20); Calcium,Total 8.8 mg/dL (8.5-10.1); Chloride 104 mmol/L (98-107); Creatinine, Serum 1.09 mg/dL (0.70-1.30); EST Glomerular Filtration Rate 76 mL/min (>60); Est Glom Filt Rate - Afr Amer 92 mL/min (>60); Ferritin 226 ng/mL (26-388); Globulin 3.9 g/dL (2.2-4.2); Glucose 97 mg/dL (74-106); Potassium 4.5 mmol/L (3.5-5.1); Protein, Total 7.9 g/dL (6.4-8.2); Sodium Level 137 mmol/L (136-145)
== END ==
PROVIDERS: PCP Family Medicine
DX: I42.8 Other cardiomyopathies (principal); I10 Essential (primary) hypertension; E66.9 Obesity, unspecified; Z87.891 Personal history of nicotine dependence
CPT/HCPCS: 36415; 80053; 82728; 83880; 85027

== ENCOUNTER → 2020-04-30 10:12 | Outpatient (CLI) | payer BC, SELFPAY ==
[2019-06-29 10:51] VITALS: BMI 34.2
--- NOTE | 2020-04-30 10:19 | ECHOD_ITS ---
Reason For Study: Non-Isch CMP Procedure This was a 2D Doppler, Color Flow transthoracic echocardiogram. The study was technically difficult. Exam performed in department. Left Ventricle Normal LV size. The estimated ejection fraction is 23 %. Stage 1 diastolic dysfunction. There is severe global hypokinesis of the left ventricle. Right Ventricle Normal RV size. ICD or pacer leads identified within the right ventricle. Normal systolic function. Atria Normal left atrium. Normal right atrium. Mitral Valve Normal mitral valve. Tricuspid Valve Normal tricuspid valve. Mild (1+) tricuspid valve insufficiency. Pulmonary artery systolic pressure is 26 mmHg. Aortic Valve The aortic valve is not well visualized. Pulmonic Valve Normal pulmonic valve. Great Vessels Normal aortic root. The pulmonary artery is normal size. Normal inferior vena cava. Pericardium/Pleural No pericardial effusion. Medication Definity deferred. Patient had severe flank pain after prior Definity administration. MMode/2D Measurements & Calculations LVIDd: 5.4 cm IVSd: 0.73 cm Ao root diam: 3.0 cm LVIDs: 4.4 cm LVPWd: 1.1 cm RVDd: 3.6 cm FS: 18.2 % LAV(MOD-bp): 31.3 ml LVAd ap4: 34.7 cm2 SV(MOD-sp4): 47.4 ml LAV(MOD-bp) Indexed: 15.0 ml/m2 EDV(MOD-sp4): 116.8 ml LAV(MOD-sp2): 36.0 ml EDV(sp4-el): 117.2 ml LAV(MOD-sp4): 28.0 ml LVAs ap4: 25.8 cm2 ESV(MOD-sp4): 69.4 ml ESV(sp4-el): 68.2 ml EF(MOD-sp4): 40.6 % EF(sp4-el): 41.8 % SV(sp4-el): 49.0 ml LA A4 area: 13.3 cm2 LA dimension(2D): 3.4 cm RA A4 area: 13.1 cm2 Doppler Measurements & Calculations MV E max carroll: 60.5 cm/sec Lat Peak E' Carroll: 9.6 cm/sec Med Peak E' Carroll: 7.4 cm/sec MV A max carroll: 98.6 cm/sec E/E' lat: 6.3 E/E' med: 8.2 MV E/A: 0.61 Ao V2 max: 121.1 cm/sec LV V1 max: 107.5 cm/sec PA V2 max: 90.4 cm/sec Ao max P.9 mmHg LV V1 max P.6 mmHg TR max carroll: 238.9 cm/sec TR max P.9 mmHg Interpretation Summary Normal LV size. The estimated ejection fraction is 23 %. There is severe global hypokinesis of the left ventricle. Stage 1 diastolic dysfunction. Pulmonary artery systolic pressure is 26 mmHg. Compared to the previous the EF is mildly improved and ther is now an ICD Ordering Physician: RAMY ROBERTO Referring Physician: RAMY ROBERTO Performed By: Karma Garza RDCS
== END ==
PROVIDERS: PCP Family Medicine
DX: I42.8 Other cardiomyopathies (principal); Z95.810 Presence of automatic (implantable) cardiac defibrillator; Z87.891 Personal history of nicotine dependence
CPT/HCPCS: 93306

== ENCOUNTER → 2020-12-07 11:57 | Outpatient (CLI) | payer BC, SELFPAY ==
[2020-12-07 13:24] LABS: Anion Gap 4 (5-15); BNP,B-Type NATRIURETIC PEPTIDE 26.7 pg/mL (0-100); BUN 23 mg/dL (7-18); BUN/Creat Ratio 27.9 RATIO (10-20); Calcium,Total 9.2 mg/dL (8.5-10.1); Chloride 106 mmol/L (98-107); Creatinine, Serum 0.82 mg/dL (0.70-1.30); EST Glomerular Filtration Rate 105 mL/min (>60); Est Glom Filt Rate - Afr Amer 127 mL/min (>60); Glucose 141 mg/dL (74-106); Potassium 4.8 mmol/L (3.5-5.1); Sodium Level 139 mmol/L (136-145)
== END ==
PROVIDERS: PCP Family Medicine
DX: I42.8 Other cardiomyopathies (principal); I10 Essential (primary) hypertension; E66.9 Obesity, unspecified; Z95.810 Presence of automatic (implantable) cardiac defibrillator
CPT/HCPCS: 36415; 80048; 83880

== ENCOUNTER 2021-07-06 23:03 | Emergency (ER) | payer BC, SELFPAY ==
[2021-07-06 23:04] VITALS: BP 151/84; PULSE 83; RESP 19; TEMP 36.2; O2SAT 99; BMI 32.8
--- NOTE | 2021-07-07 00:20 | EDS_ITS ---
HPI History of Present Illness Chief Complaint: Back Informant: patient and spouse/S.O. Narrative Narrative: Patient presents with left leg pain. He states he drove down to the beach last week. They stayed overnight for a wedding. When he got up in the morning his back was very sore. He stepped to the ground and it hurt a lot. He has had pain in his left lower back ever since. It will occasionally radiate down the left thigh and a little bit to the left lateral upper calf. He does not feel weakness numbness or tingling but it does hurt more to bear weight. No urinary or bowel symptoms. No fevers or chills. No acute trauma. He was seen in an emergency department at the [facility]. He was given Toradol shot and a 5 days of steroids. He states it really has not helped. He saw a chiropractor which did not help. He went then went to urgent care they gave him what sounds like lidocaine and he may have gotten a steroid shot. He has never been given meds to go home other than the prednisone. He has an appointment with Dr. Tony this week. His biggest issue is that he gets to sleep and then he wakes up about 2 hours later because he rolls over in bed and he gets sharp shooting pain that goes down his leg. He will then get comfortable again in that process recycles. He tried some Benadryl which helped him sleep but did not help with the pain. [facility] Medical History Anxiety and depression Chronic combined systolic and diastolic CHF (congestive heart failure) History of kidney stones History of seizure Non-ischemic cardiomyopathy Obesity Secondary pulmonary arterial hypertension Home Medications albuterol sulfate 2 puff INHALATION Q4H PRN PRN #1 inhaler 04/25/19 [Rx Last Taken Unknown] furosemide 40 mg tablet 40 mg PO DAILY #90 tab 04/27/19 [Rx Last Taken Unknown] lisdexamfetamine 50 mg capsule 50 mg PO QAM cap 05/03/19 [History Last Taken Unknown] carvedilol 12.5 mg tablet 6.25 mg PO BID #180 tab 06/14/19 [Rx Last Taken 06/30/19] esomeprazole magnesium 40 mg capsule,delayed release 40 mg PO DAILY #30 cap 06/23/19 [Rx Last Taken Unknown] sacubitril 24 mg-valsartan 26 mg tablet 1 tab PO BID #60 tab 06/30/19 [Rx Last Taken Unknown] oxycodone-acetaminophen [Percocet] 1 tab PO Q6H PRN 3 Days #12 tab 07/07/21 [Rx Last Taken Unknown] Allergy/AdvReac Type Severity Reaction Status Date / Time shellfish derived AdvReac Swelling Verified 07/06/21 23:04 Family History Father Cancer esophageal Mother Thyroid disorder Brother Heart disease unsure of type Surgical History History of left heart catheterization (06/30/19) History of lithotripsy History of repair of ACL History of ureter stent Social History Smoking Status: Never smoker how long ago did patient quit smokin week ago alcohol intake: current alcohol intake frequency: a few times a week substance use type: does not use caffeine: Yes Type: carbonated beverages Number of servings: 2 and coffee Number of servings: 1 ROS ROS ED Constitutional Constitutional ED: Denies chills or fever(s) Eyes Eyes: Denies blurry vision ENT ENT ED: Denies rhinorrhea or sore throat Cardiovascular Cardiovascular: Denies chest pain or palpitations Respiratory/Chest Respiratory/Chest: Denies dyspnea or sputum Gastrointestinal Gastrointestinal: Denies abdominal pain, constipation, diarrhea, melena, nausea or vomiting Genitourinary Genitourinary ED: Denies dysuria, hematuria or urinary frequency Musculoskeletal Musculoskeletal: Reports back pain; Denies arthralgias, myalgias or neck pain Integumentary Denies rash Neurologic Neurologic: Reports other Details: No weakness or numbness but he does have pain that shoots down the lateral aspect of his left leg. ; Denies paresthesias or weakness Endocrine Endocrinology: Denies polydipsia or polyuria Hematologic/Lymphatic Hematologic/Lymphatic: Denies easy bleeding or easy bruising Allergic/Immunologic Allergic/Immunologic ED: Denies urticaria EXAM Physical Exam Const Vital Signs: 07/06/21 23:04 Temperature 97.1 F L Temperature Source Temporal Pulse Rate 83 Respiratory Rate 19 H Blood Pressure 151/84 H Blood Pressure Mean 106 Pulse Ox 99 Oxygen Delivery Method Room Air Positive well nourished and well developed General Appearance ED: well developed and NAD HEENT Reports moist mucous membranes Eyes General Eye ED: Negative for pale conjunctiva or scleral icterus Neck no JVD Resp normal respiratory effort Cardio regular rate, regular rhythm and no murmurs GI normal to inspection, nondistended, normoactive bowel sounds, soft to palpation, non-tender and non-distended Back/Spine normal to inspection Back/Spine Narrative: Patient does have some left lower lumbar and SI area tenderness. No skin changes. Extremity normal to inspection and no clubbing, cyanosis or edema General Extremety ED: Negative for edema or tenderness General Extremity: Negative for edema Neuro oriented x3 Neuro Narrative: Patient is awake and alert. His strength is actually intact. He has good quad strength. He was able to get up off the chair. He was able to get himself off on the bed. He positioned himself sliding sideways on the bed and positioned himself to let the legs hang. However, he does have reduced reflex on the left patella. He is got +1 on the left and +2 right. Achilles are equal at +2. But are not getting sensory changes or weakness. Sensorium / Orientation: alert Psych mental status grossly normal MDM MDM MDM Narrative Medical decision making narrative: Patient does have a little over a week of back pain. He has radicular symptoms. He does have a slight change in his reflex but no weakness or sensory changes. I explained that he may end up getting an MRI sooner than later. If he does not respond any therapy is possible he may even have surgery for this. He has no red flags of back pain. He has no trauma. No fevers chills or history of cancers. I will give him a shot of Kenalog here. We will give him some meds for pain. I did do an online prescribing report. He has Vyvanse and a few prescription for gabapentin but has never had narcotic. I think this patient has genuine discomfort and is not seeking pain meds and I am not at all uncomfortable prescribing something until he can get into his appointments this week. Discharge Plan Triage Chief Complaint: Back ED Provider: Thaddeus Goodman Dx/Rx/DC Orders Clinical Impression: Lower back pain, Radiculopathy of leg Instructions: ED Sciatica Prescriptions: New oxycodone-acetaminophen [Percocet] 5-325 mg tablet 1 tab PO Q6H PRN (Reason: pain) 3 Days Qty: 12 RF: 0 No Action lisdexamfetamine 50 mg capsule 50 mg PO QAM RF: 0 esomeprazole magnesium [Nexium] 40 mg capsule,delayed release(DR/EC) 40 mg PO DAILY Qty: 30 RF: 3 albuterol sulfate 1 INHALER inhaler 2 puff inhalation Q4H PRN PRN (Reason: Wheezing) Qty: 1 RF: 0 furosemide [Lasix] 40 mg tablet 40 mg PO DAILY Qty: 90 RF: 3 carvedilol 12.5 mg tablet 6.25 mg PO BID Qty: 180 RF: 3 Entresto 24-26 mg tablet 1 tab PO BID Qty: 60 RF: 11 Primary Care Provider: Lashell Diallo Referrals: Carson Deng DO [STAFF PHYSICIAN] - As soon as possible Lashell Diallo MD [Primary Care Provider] - Disposition Disposition: Home, Self Care
[2021-07-07] MEDS: Ketorolac 60 MG/2 ML Vial IM (00:46)
[2021-07-07] MEDS: Triamcinolone Acetonide 40 MG/ML Vial IM (00:46)
[2021-07-07] MEDS: HYDROmorphone 1 MG/ML Syringe IM (00:46)
== END 2021-07-07 01:05 | disposition home or self-care (01) ==
PROVIDERS: Emergency Provider Emergency Medicine; PCP Family Medicine; Visit Provider Emergency Medicine
DX: M54.16 Radiculopathy, lumbar region (principal); I11.0 Hypertensive heart disease with heart failure; I50.42 Chronic combined systolic (congestive) and diastolic (congestive) heart failure; I42.8 Other cardiomyopathies; I27.21 Secondary pulmonary arterial hypertension; Z87.442 Personal history of urinary calculi; E66.9 Obesity, unspecified; F41.9 Anxiety disorder, unspecified; F32.A Depression, unspecified; Z79.899 Other long term (current) drug therapy; Z68.32 Body mass index [BMI] 32.0-32.9, adult
CPT/HCPCS: 96372; 99282

== ENCOUNTER → 2021-07-15 | Outpatient (CLI) | payer BC, SELFPAY ==
--- NOTE | 2021-07-15 10:25 | MRI_ITS ---
STUDY: MRI LUMBAR SPINE WITHOUT CONTRAST REASON FOR EXAM: Male, 50 years old. BACK and left leg PAIN TECHNIQUE: Standardized fat and water weighted pulse sequences were obtained in the sagittal and axial planes. COMPARISON: None FINDINGS: Transitional anatomy is present at the lumbosacral sacral junction (appears to be lumbarization of the S1 vertebral body). For purposes of this exam the most caudal squared vertebral body be considered S1. No marrow edema or fracture or compression deformity is present. T12-L1: Normal endplates. Normal disc height, hydration and morphology. Normal bilateral facet joints. Normal central canal and bilateral lateral recesses. Normal bilateral intervertebral neural foramina. Normal lumbar lordosis. There is a dextroscoliosis of the lumbar spine. Normal conus medullaris that terminates at the L1 level. L1-2: Normal endplates. Normal disc height, hydration and morphology. Normal bilateral facet joints. Normal central canal and bilateral lateral recesses. Normal bilateral intervertebral neural foramina. L2-3: Normal endplates. Normal disc height, hydration and morphology. Normal bilateral facet joints. Normal central canal and bilateral lateral recesses. Normal bilateral intervertebral neural foramina. L3-4: Normal endplates. Diffuse disc desiccation and mild disc space narrowing with minimal posterior annular bulging. Normal bilateral facet joints. Normal central canal and bilateral lateral recesses. Normal bilateral intervertebral neural foramina. L4-5: Moderate posterior disc space narrowing resulting and annular bulging as well as a left of midline/paracentral small superior subligamentous disc extrusion. Mild to moderate central canal stenosis is present due to the disc pathology and mild to moderate hypertrophy of the facets and ligamenta flava. Mild fluid distention of the left facet joint. Left foraminal extruded disc material contributes to severe central left foraminal stenosis with nerve root compression. Normal right neural foramen. L5-S1: Normal endplates. Moderate disc space narrowing with a mild diffuse disc bulge. Mild anterior endplate spurring and osteophyte formation. Moderate facet joint hypertrophy and degeneration contributes to mild central canal stenosis. Normal bilateral lateral recesses. Normal bilateral intervertebral neural foramina. Normal visualized sacral ala. Normal visualized paraspinous soft tissue structures. MRI/Spine Lumbar (Routine) IMPRESSION: 1. Multilevel degenerative changes, as described above. 2. Annular bulging and left paracentral disc extrusion at L4-L5 contributes to mild to moderate central canal stenosis 3. Severe left foraminal stenosis with nerve root compression at L4-L5 Electronically Signed: Adan Kay MD at 13:03 EDT ,
[2021-07-15 10:45] VITALS: BP 102/57; PULSE 79; RESP 14; O2SAT 94
[2021-07-15 11:00] VITALS: BP 102/57; PULSE 77; O2SAT 95
[2021-07-15 11:08] VITALS: BP 102/58; PULSE 80; O2SAT 93
--- NOTE | 2021-07-15 14:20 | RAD_ITS ---
STUDY: X-RAY - LUMBAR SPINE REASON FOR EXAM: Male, 50 years old. LUMBAR RADICULOPATHY -- AP AND LAT TECHNIQUE: 2 view(s) of the lumbar spine were obtained. COMPARISON: MRI of the lumbar spine dated JULY 15, 2021 FINDINGS: Findings correlate with the MRI of the lumbar spine which shows transitional anatomy and lumbarization of the S1 vertebral body. The levels correlate with the MRI findings. Normal lumbar lordosis. Mild levoscoliosis is present. Multilevel mild to moderate disc space narrowing and endplate degenerative changes. No visualized fracture or compression deformity. The soft tissue structures are unremarkable. RAD/Lumbar Spine 2 or 3 Views IMPRESSION: Degenerative changes of the spine, as detailed above. Electronically Signed: Adan Kay MD at 15:24 EDT ,
== END | disposition home or self-care (01) ==
PROVIDERS: PCP Family Medicine; Referring Provider Anesthesiology Pain Medicine; Visit Provider Anesthesiology Pain Medicine
DX: M54.16 Radiculopathy, lumbar region (principal)
CPT/HCPCS: 72100; 72148; J2405

== ENCOUNTER 2021-07-18 11:30 | Inpatient (IN) | payer BC, SELFPAY ==
--- NOTE | 2021-07-17 13:47 | RAD_ITS ---
STUDY: X-RAY CHEST REASON FOR EXAM: Male, 50 years old. CHEST PAIN PREOP TECHNIQUE: XR Chest 2 Views COMPARISON: None FINDINGS: There is no demonstrated pleural abnormality. There is a right sided pacemaker batterypack. Normal size heart. Normal mediastinum and karen. Normal visualized pulmonary arteries. Normal visualized aortic arch and descending thoracic aorta. Normal visualized thoracic spine. Normal visualized ribs, clavicles, and shoulders. There is no demonstrated abnormality of the visualized soft tissue structures of the upper abdomen. RAD/Chest PA and Lateral IMPRESSION: There are no acute findings. Electronically Signed: Barrett Blair MD at 19:28 EDT ,
--- NOTE | 2021-07-17 13:47 | EKG12_ITS ---
Test Reason : PREOP Blood Pressure : / mmHG Vent. Rate : 084 BPM Atrial Rate : 084 BPM P-R Int : 144 ms QRS Dur : 096 ms QT Int : 376 ms P-R-T Axes : 042 -31 -04 degrees QTc Int : 444 ms Sinus rhythm with frequent Premature ventricular complexes Left axis deviation Abnormal ECG Confirmed by DANUTA TEJADA, AR ([id number]), supervising editor news reel NOEMY RAMOS ([id number]) on 07/18/2021 9:01:41 AM Referred By: SAFIA Confirmed By:AR TIPTON MD
[2021-07-17 14:01] LABS: Absolute Lymphocyte Count 1.33 X10^3/uL (0.83-4.51); Absolute Neutrophil Count 9.8 X10^3/uL (2.0-7.7); Basophil# 0.06 X10^3/uL; Basophil% 0.5 % (0-1); Eosinophil# 0.02 X10^3/uL; Eosinophils% 0.2 % (0-5); Hematocrit 51.3 % (40-54); Hemoglobin 16.9 g/dL (13.0-16.5); Lymphocyte # 1.33 X10^3/ul (0.83-4.51); Lymphocyte % 10.8 % (19-41); Mean Corp Hgb Conc 32.9 g/dL (32-36); Mean Corpuscular Hgb 32.4 pg (27.0-32.0); Mean Corpuscular Volume 98.5 fL (80-94); Mean Platelet Vol. 8.6 fl (6.2-12.0); Monocyte# 0.83 X10^3/uL; Monocyte% 6.7 % (0-10); NRBC Flagged by Analyzer 0 % (0-5); Neutrophil # 9.84 X10^3/uL (2.7-7.7); Neutrophil % 79.8 % (47-70); Platelet Count 281 K/mm3 (150-450); RBC Distribution Width CV 11.9 % (11.6-14.6); RBC Distribution Width SD 43.2 fl (35.1-43.9); Red Blood Count 5.21 M/mm3 (4.6-6.2); White Blood Count 12.3 K/mm3 (4.4-11.0)
[2021-07-17 14:25] LABS: Anion Gap 6 (5-15); BUN 25 mg/dL (7-18); BUN/Creat Ratio 31.2 RATIO (10-20); Calcium,Total 9.4 mg/dL (8.5-10.1); Chloride 105 mmol/L (98-107); EST Glomerular Filtration Rate 108 mL/min (>60); Est Glom Filt Rate - Afr Amer 131 mL/min (>60); Glucose 115 mg/dL (74-106); Potassium 4.1 mmol/L (3.5-5.1); Sodium Level 138 mmol/L (136-145)
[2021-07-17 14:26] LABS: Magnesium 2.3 mg/dL (1.6-2.6)
[2021-07-17 15:24] LABS: HIV - WCH Non-Reactive (Nonreactive); Hepatitis B Surface Antibody Non-Reactive; Hepatitis C Antibody Non-Reactive (Nonreactive)
[2021-07-18] VITALS (14 sets, daily range): BP systolic 107–132; BP diastolic 56–83; PULSE 68–93; RESP 14–18; TEMP 36.1–36.9; O2SAT 94–99; BMI 34.2
--- NOTE | 2021-07-18 | DISC_PTH ---
PATIENT: TAMMY WALTERS [facility]: [facility] U#:[id number] AGE/SX: 50/M ROOM: [facility] RE07/18/[address]: Dr. Carson Deng DO : 1970 BED: 1 DIS: 07/22/2021 SPEC #: [id number] RECD: 07/19/21 07:19 STATUS: JUAN ANTONIO REQ #: [id number] HEATHER: 07/18/21 00:[address]: Carson Deng DEPT: SURGICAL PATHOLOGY RECD BY: Franky Vanessa ENTERED: 07/19/21 08:12 SP TYPE: DISC OTHR DR: DO Dr. Macho Yates MD Dr. Tyra Mone, MD Tissues: Intervertebral disc, NOS Procedures: Decalcification bone/plaque Surgery Specimen Level III HEADER OPERATION: Lumbar laminectomy L4-5 PRE-OP DIAGNOSIS: Low back pain, lumbosacral radiculopathy at L4, herniated nucleus pulposus L45?left TISSUE SUBMITTED: Disc L4-5 MICROSCOPIC DIAGNOSIS Disc L4-5, laminectomy: Fragments of fibrocartilaginous tissue, dense fibroconnective tissue with reactive changes and bone. HARJINDER:daisy 07/24/2021 MICROSCOPIC DESCRIPTION Slides are reviewed. GROSS DESCRIPTION Received in fixative is one container labeled with the patient's name and designated disc lumbar 4-5. The specimen consists of multiple irregular fragments of johnson, indurated tissue mixed with fragments of bone that in aggregate measure 4 x 3.5 x 1 cm. Manual Tester tissue is submitted in one cassette after decalcification. / HARJINDER:daisy 07/19/2021 TC:5 CPT: 74243, 89898
--- NOTE | 2021-07-18 10:13 | PCM.HP.BLA ---
History and Physical Date of Admission: 07/18/21 [facility] [id number] [facility] [address] [place] [address] [phone] OFFICE VISITDate of Service: 07/17/21 MR#:[id number]:[id number]: TAMMY WALTERS ARep #:[id number] Provider:Dr. Carson Deng, DOAge/Sex: 50/M Location:Anu:Signed Intake Intake Visit Reasons: Lumbar pain Is patient in pain?: Yes Pain scale (1-10): 8 Allergies shellfish derived Adverse Reaction (Verified 07/06/21 23:04) Swelling Medications albuterol sulfate 2 puff INHALATION Q4H PRN PRN #1 inhaler 04/25/19 [Rx Confirmed 07/17/21] furosemide 40 mg tablet 40 mg PO DAILY #90 tab 04/27/19 [Rx Confirmed 07/17/21] lisdexamfetamine 50 mg capsule 50 mg PO QAM cap 05/03/19 [History Confirmed 07/17/21] carvedilol 12.5 mg tablet 6.25 mg PO BID #180 tab 06/14/19 [Rx Confirmed 07/17/21] esomeprazole magnesium 40 mg capsule,delayed release 40 mg PO DAILY #30 cap 06/23/19 [Rx Confirmed 07/17/21] sacubitril 24 mg-valsartan 26 mg tablet 1 tab PO BID #60 tab 06/30/19 [Rx Confirmed 07/17/21] oxycodone-acetaminophen [Percocet] 1 tab PO Q6H PRN 3 Days #12 tab 07/07/21 [Rx Confirmed 07/17/21] PFSH Medical History Anxiety and depression Chronic combined systolic and diastolic CHF (congestive heart failure) History of kidney stones History of seizure Non-ischemic cardiomyopathy Obesity Secondary pulmonary arterial hypertension Surgical History History of left heart catheterization (06/30/19) History of lithotripsy History of repair of ACL History of ureter stent Family History Father Cancer esophageal Mother Thyroid disorder Brother Heart disease unsure of type Social History Smoking Status: Never smoker how long ago did patient quit smokin week ago alcohol intake: current alcohol intake frequency: a few times a week substance use type: does not use caffeine: Yes Type: carbonated beverages Number of servings: 2 and coffee Number of servings: 1 HPI Low back pain Details: Parts of this documentation were recorded by a scribe, this documentation accurately reflects the service provided and the decisions made by me, Dr. Carson Deng, DO 07/17/21 1220. TAMMY WALTERS is a 50 year old M NEW patient here today for low back pain that radiates into his leg. He states that on 06/30/21 he was ridding in a car to [place] and he woke up the next morning with this severe low back pain and pain into the left leg. Denies any known injury. He states that he has pain down the left leg to about the knee then his lower left leg feels numb. Denies any bowel or bladder issues. He has seen Dr. Duke and had a steroid injection yesterday which helped to dull his pain so he was able to sleep last night. He states it feels like his body has been through a big trama and he feels that his body is bruised internally. He has also tried a Medrol dose pack which was not helpful. He states that he also has been taking Tizanidine which is helpful. Alvaro is a most does not gentleman 50 years old who comes in the company of his Alonso. No on July 01 a little over 2 weeks ago he woke up with this after driving 10 hours. Been in pain ever since it starts in the back goes to his left buttocks and down the thigh anterolateral and anterior. He has noticed weakness of his quad. He has to use crutches to ambulate. Of course he has been unable to work. 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 He denies any bowel or bladder dysfunction. He has never had pain like this before. Has had steroids on 3 different occasions since this started and they do not help him at all. The single epidural that he had did not help him either. On examination he has wasting of his left quad. I can overpower the quad easily I cannot of the right 1. He cannot bend down very far on just the left quad as it gives way. He can easily with the other quad. His left patellar reflex is almost absent his right 1 is 3+. He has good anterior tibialis and EHL strength bilaterally. He has good hip flexor strength bilaterally also. He has no long tract signs. Clonus is absent Babinski's are downgoing. He has 2+ posterior tibial and Achilles reflexes bilaterally. Impression is that of severe left L4 radiculopathy with neurological deficit. I reviewed the MRI scan demonstrates as it has not L4-5 herniation to the left side that has gone up behind the L4 vertebral body and lateralward into the introitus of the foramen thus pressing on the L4 nerve. Obviously he will need surgical intervention with his significant deficit and just a 2-week period. We will need cardiac clearance because of his pacemaker and we will do his surgery as soon as is reasonably possible. Coding Level of Care Code Off vis,new,level 3 Diagnoses Low back pain M54.50 Lumbosacral radiculopathy at L4 M54.17 Herniated nucleus pulposus, L4-5 left M51.26 Time Spent (min) 30 Assessment and Plan Assessment and Plan (1) Low back pain:
[2021-07-18] MEDS: Lactated Ringers 1,000 ML 15 ML IV (10:20)
[2021-07-18] MEDS: Acetaminophen 500 MG Tablet 1000 MG PO ×2 (10:21→18:01)
[2021-07-18 10:40] LABS: Bedside Glucose 115 mg/dL (74-106)
[2021-07-18] MEDS: Cefazolin 2 GM in 0.9% Normal Saline 100 ML IV (11:25)
--- NOTE | 2021-07-18 11:30 | RAD_ITS ---
STUDY: X-RAY - LUMBAR SPINE REASON FOR EXAM: Male, 50 years old. LAMINECTOMY L4-5, LEFT TECHNIQUE: 1 view(s) of the lumbar spine were obtained. COMPARISON: None FINDINGS: The localization instrument is seen posterior to the L4-L5 disc space level. RAD/Spine 1 View Any Level IMPRESSION: The localization instrument is seen posterior to the L4-L5 disc space level. Electronically Signed: Radu Gilbert MD at 13:07 EDT ,
[2021-07-18] MEDS: THROMBIN (RECOMBINANT) 20,000 UNIT VIAL 20000 UNIT TOPICAL (14:04)
[2021-07-18] MEDS: Thrombin 5,000 IU Kit (PSA) 5,000 IU Vial 5000 IU TOPICAL (14:04)
--- NOTE | 2021-07-18 14:37 | OP.PCM_ITS ---
Report of Operation Date of Procedure: 07/18/21 Description of Surgical Findings:: Preoperative diagnosis: Herniated disc L4-5 with severe left L4 radiculopathy with intractable pain and neurological deficit Postoperative diagnosis: The same Procedure: Lumbar laminectomy L4-5 on the left CPT code 17618 Surgeon: Dr. Deng home health assistant: Aly DENNIS Anesthesia: General endotracheal administered by [facility] Drains: Medium Hemovac Complications: None Procedure: Patient was taken to the OR where he was placed under general endotracheal anesthesia while on his gurney. A Vazquez catheter was inserted. Neuro monitoring placed their leads on the patient. He was then rolled over onto the prone position on the Shahbaz frame. After appropriate positioning with care to protect his bony prominences the genitalia the brachial plexus on both sides the ulnar nerves of both elbows the facial features and cervical spine the back was prepped and draped in standard fashion. I then made a longitudinal incision centered over L4-5 spinous processes. As in cautery I then elevated paravertebral muscles off the lamina of L4 and the top of the L5 lamina. An intraoperative x-ray was taken with a marker in place to confirm that we were indeed at the L4-5 level. I continue to elevate more of paravertebral muscles on the left side. Because of the nature of his herniation that went up into the introitus of the foramen above I had to do extensive exposure of the lamina all the way up to its superior and. Once this was done a Adeola retractor was then put in place. I then used a curette to release the ligamentum flavum off the underside of the lamina of L4. Laminectomy was carried out with 45 degree Kerrison rongeurs again it was long and went very far far enough to get to the foramen above. Once this was done we started retracting the dura note that we f ound the disc space and then found disc above it all the way to the introitus of the foramen on the left side. Note that the disc was calcified which means it had been there a long time the shift 3 weeks ago during the 10-hour car ride was probably very small but just enough to compress the base of the L4 nerve root. Noted we had brisk bleeding because of large epidural vessels and because of his large abdomen he was like in a constant Valsalva. This of course increase the bleeding ended up losing about 200 cc which is unusual for me as usually only lose about 30 cc with these kinds of cases. Nonetheless he started with a hemoglobin of over 16. That day to 200 cc a lot more acceptable. With retraction of the dura and base of the 5th nerve root we got a lot of bleeding. We were able to cauterize some of the epidurals with bipolar cautery. The others we packed with thrombin-soaked Gelfoam and cottonoids repeatedly to control bleeding. Slow the case down quite a bit of course. Note that the disc was calcified as mentioned above. This made it much harder as it was adhered to any and everything is calcified discs do which means it has been there for quite a while. The shift during his long trip is what made it much worse. No doubt there was a small shift in the calcified disc. Note that it was also subligamentous so I had to cut into the subligamentous area all the way to the introitus of the foramen. I was done I checked the foramen where the L4 nerve exited and it was completely open I swept under the nerve also and swept into the dura and no more disc was found. I also checked the foramen of L5 and it was very open also. We packed the area with thrombin-soaked Gelfoam and cottonoids repeatedly until good hemostasis was obtained. We then placed amnionic membrane over the dura to prevent adhesions Gelfoam was placed over the top of that. A medium Hemovac drain was inserted and closure was begun. We closed the lumbar fascia using [id number] suture with #1 Vicryl. This was followed by closure of the subcutaneous tissues in layers with 0 Vicryl and 2-0 Vicryl in interrupted fashion. The skin was approximated using skin clips. Sterile dressings were then applied. The patient was then recovered in the OR he was moved to his hospital bed and taken to recovery in satisfactory condition. The end of operative summary on Kayden Arellano. This is Dr. Deng dictating.
[2021-07-18] MEDS: Lactated Ringers 1,000 ML 100 ML IV ×2 (15:15→23:43)
--- NOTE | 2021-07-18 17:27 | PN.HOSP_ITS ---
Documented by User: Fernando DENNIS 07/18/21 17:49 Subjective Subjective Patient is a 50-year-old male comfortably resting after L4/L5 laminectomy, currently sedated and unable to provide much insight into current condition. Objective Data Objective Data Vital Signs: Vital Signs Temp Pulse Resp BP Pulse Ox 97.8 F 84 14 128/76 H 98 07/18/21 17:14 07/18/21 17:14 07/18/21 17:14 07/18/21 17:14 07/18/21 17:14 Oxygen Flow Rate (L/min) 4 Oxygen Delivery Method Nasal Cannula Weight: 219 lb Body Mass Index (BMI) 34.2 Intake & Output: Intake and Output for Last 24 Hours 07/16/21 07/17/21 07/18/21 23:59 23:59 23:59 Intake Total 2211 Output Total 150 / 150 Balance 2061 Lab / Micro Data Result Diagrams: 07/17/21 13:35 07/17/21 13:35 Labs: Laboratory Results - last 24 hr 07/18/21 10:20: POC Glucose 115 H Micro: Microbiology 07/17/21 13:35 Swab (Method) Nasal Screen MRSA/MSSA - Final Radiography Diagnostic Testing: Radiology Impression Chest X-Ray 07/17/21 13:47 IMPRESSION: There are no acute findings. Electronically Signed: Barrett Blair MD at 19:28 EDT , Spine X-Ray 07/18/21 11:30 IMPRESSION: The localization instrument is seen posterior to the L4-L5 disc space level. Electronically Signed: Radu Gilbert MD at 13:07 EDT , Physical Exam Const alert HEENT head/scalp atraumatic and moist oral mucous membranes Head and Scalp: normocephalic Eyes PERRL, EOMs intact bilaterally and conjunctivae normal Neck no lymphadenopathy, supple and no JVD Resp normal respiratory effort, no retractions and no use of accessory muscles Cardio regular rate, regular rhythm and no JVD GI normal to inspection, nondistended, normoactive bowel sounds and soft to palpation Extremity normal to inspection and full ROM Skin no rashes or lesions noted, no wounds and skin turgor normal Neuro Neuro Narrative: Unable to assess due to level of sedation. Psych Psych Narrative: Unable to assess due to level of sedation. Assessment & Plan Assessment/Plan (1) Secondary pulmonary arterial hypertension: (2) Chronic combined systolic and diastolic CHF (congestive heart failure): (3) Non-ischemic cardiomyopathy: (4) Herniated nucleus pulposus, L4-5 left: (5) Lumbosacral radiculopathy at L4: PLAN: Patient is a 50-year-old male who presents to the hospital medicine service on consult from orthopedics department. 1) nonischemic cardiomyopathy Status post ICD. Follows with a retirement manager at [facility]. Continue Entresto, Coreg and Lasix. 2) GERD Continue PPI. 3) L4/L5 disc herniation with radiculopathy POD 0 lumbar laminectomy L4/L5. Management per orthopedics. DVT prophylaxis - per orthopedics Patient seen by Fernando Coppola PA-C, under the supervision of Dr. Borges. Time spent on patient care: 10 minutes. Documented by User: Dr. Fabrice Borges DO 07/18/21 19:36 Objective Data Lab / Micro Data Result Diagrams: 07/17/21 13:35 07/17/21 13:35 Charges/Coding Addendum Addendum: Patient was seen and examined independently of Fernando Coppola, he was examined in the PACU after undergoing a lumbar laminectomy L4-5 on the left due to a herniated disc at L4-5 with severe left L4 radiculopathy and intractable pain with neurological deficit. Patient was somnolent during my examination as he was coming off anesthesia, information was obtained from the patient's who was present at the time of my examination. Patient has a history of nonischemic cardiomyopathy, the patient's stated that his last echocardiogram showed an EF of 45%. On examination he appeared lethargic and somnolent. Vital signs as documented. Skin warm and dry and without overt rashes. Neck without JVD, neck was supple, trachea midline, thyroid was normal. Lungs clear bilaterally, normal air movement was noted. Heart exam notable for regular rhythm, normal sounds and absence of murmurs, rubs or gallops. Abdomen unremarkable and without evidence of organomegaly, masses, or abdominal aortic enlargement. Bowel sounds are present, abdomen is not distended. Extremities nonedematous, no cyanosis was noted, no clubbing was noted. Neuro: Cranial nerves II through XII are grossly intact, no focal motor deficits were noted, sensation to light touch and pinprick intact, motor exam 5/5 throughout. Psych: Patient was somnolent, he responded to painful stimuli and open his eyes to verbal stimuli Impression: #1 nonischemic cardiomyopathy-patient's medications will be continued during his hospitalization #2 GERD-patient is on a PPI #3 herniated disc L4-5-status post laminectomy postop day 0-PT and OT will see patient, orthopedic surgery is participating in his care I have reviewed Fernando Coppola's progress note including his medical assessment and plan of care with the above additions endorse it. Total clinical time spent by myself addressing the patient's issues, reviewing the data, and collaborating with his care team: 20 minutes Visit Charges OBSV E&M: [id number] Subsequent observation care L2
[2021-07-18] MEDS: Ensure Surgery 237 ML LIQUID PO (18:01)
[2021-07-18] MEDS: Morphine 2 MG/ML Syringe IV ×2 (19:48→23:48)
[2021-07-18] MEDS: Carvedilol 25 MG Tablet PO (19:53)
[2021-07-18] MEDS: tiZANidine HCl 2 MG Tablet 4 MG PO (19:54)
[2021-07-18] MEDS: SACUBITRIL/VALSARTAN 97-103 MG TABLET 1 EACH PO (19:54)
[2021-07-18] MEDS: Cefazolin 1 GM/50 ML BAG IV (20:16)
[2021-07-19] VITALS (7 sets, daily range): BP systolic 99–129; BP diastolic 55–72; PULSE 76–89; RESP 18–20; TEMP 36.7–37.2; O2SAT 94–98
[2021-07-19] MEDS: Cefazolin 1 GM/50 ML BAG IV (03:04)
[2021-07-19] MEDS: Morphine 4 MG/ML Syringe IV ×4 (03:16→18:20)
[2021-07-19] MEDS: Acetaminophen 500 MG Tablet 1000 MG PO ×3 (06:09→21:12)
[2021-07-19] MEDS: diazePAM 5 MG Tablet PO (06:09)
[2021-07-19] MEDS: oxyCODONE 5 MG Tablet PO (06:09)
[2021-07-19] MEDS: Empagliflozin 10 MG Tablet PO (09:20)
[2021-07-19] MEDS: Pantoprazole Sodium 20 MG Tablet PO (09:20)
[2021-07-19] MEDS: SACUBITRIL/VALSARTAN 97-103 MG TABLET 1 EACH PO ×2 (09:21→21:12)
[2021-07-19] MEDS: Ondansetron 4 MG/2 ML Vial IV (09:28)
[2021-07-19] MEDS: Morphine 2 MG/ML Syringe IV (09:28)
--- NOTE | 2021-07-19 09:32 | NURSING ---
Pt was not having any pain until stood up with this nurses assistance at edge of bed. Pt wanted to get oob and stand up instead of roll in bed so that this RN can look at dressing. Pt did not want to go sit in the chair. painful. Back in bed now and complaining of 7 out of 10 pain. Pt states it was 10 out of 10 when he was standing. also felt nauseated when standing up.
--- NOTE | 2021-07-19 10:05 | CASEMGMT ---
RN GLENNA Face to Face with patient for initial transition planning/care coordination assessment. RN CM introduced self and role at [facility]. Patient lying in bed, alert and oriented. Patient willing to participate in assessment and is able to answer all questions appropriately. Care providers, pharmacy, and demographics verified. Patient wishes to discharge home, denies need for home health at this time. Patient states he has no further needs or concerns at this time. CM to follow for discharge planning needs that may arise. PCP: Imani Specialists: carlos Deng; Dr. Monroe, adjunct political science instructor at [employer] Preferred Pharmacy: [facility] Retail Insurance: [employer] Prescription Benefit: yes Living Will/HPOA: none LNOK: Living Arrangements: Patient lives with in a 2 story home with access to bed and bath on first floor. Patient states he was independent and able to ambulate stairs prior to surgery. Transportation: self, DME/HHC: Patient has raised toilet, crutches, and grab bars at home. Will monitor for walker at discharge. Patient denies previous HHC or SNF. Disposition Plan: Patient to discharge home with family support and follow-up plans in place. Mariza MANNING, RN, CM
--- NOTE | 2021-07-19 10:58 | PCM.PN.HOSP ---
Documented by User: Fernando DENNIS 07/19/21 11:04 Subjective Subjective Patient is a 50-year-old male comfortably resting in bed, alert and orient x3. Patient reports feeling well after surgery and denies any complaints. Does not appear in acute distress. Objective Data Objective Data Vital Signs: Vital Signs Temp Pulse Resp BP Pulse Ox 98.5 F 85 20 H 99/66 96 07/19/21 09:07 07/19/21 09:07 07/19/21 09:07 07/19/21 09:07 07/19/21 09:07 Oxygen Flow Rate (L/min) 1 Oxygen Delivery Method Room Air Weight: 219 lb Body Mass Index (BMI) 34.2 Intake & Output: Intake and Output for Last 24 Hours 07/17/21 07/18/21 07/19/21 23:59 23:59 23:59 Intake Total 3108.67 / 3558.67 2085 / 2085 Output Total 150 / 1350 1795 / 1795 Balance 2958.67 / 2208.67 290 / 290 Lab / Micro Data Result Diagrams: 07/17/21 13:35 07/17/21 13:35 Micro: Microbiology 07/17/21 13:35 Swab (Method) Nasal Screen MRSA/MSSA - Final Radiography Diagnostic Testing: Radiology Impression Spine X-Ray 07/18/21 11:30 IMPRESSION: The localization instrument is seen posterior to the L4-L5 disc space level. Electronically Signed: Radu Gilbert MD at 13:07 EDT , Physical Exam Const alert, oriented x3 and no apparent distress HEENT head/scalp atraumatic and moist oral mucous membranes Head and Scalp: normocephalic Eyes PERRL, EOMs intact bilaterally and conjunctivae normal Neck no lymphadenopathy, supple and no JVD Resp normal respiratory effort, no retractions and no use of accessory muscles Cardio regular rate, regular rhythm and no JVD GI normal to inspection, nondistended, normoactive bowel sounds and soft to palpation Extremity normal to inspection, full ROM and no clubbing, cyanosis or edema Skin no rashes or lesions noted, no wounds and skin turgor normal Neuro CN's II-XII intact bilaterally Psych affect normal Assessment & Plan Assessment/Plan (1) Non-ischemic cardiomyopathy: (2) Secondary pulmonary arterial hypertension: (3) Chronic combined systolic and diastolic CHF (congestive heart failure): PLAN: Patient is a 50-year-old male who presents to the hospital medicine service on consult from orthopedics department. 1) nonischemic cardiomyopathy Status post ICD. Follows with a senior financial reporting analyst at [facility]. Continue Entresto, Coreg and Lasix. 2) GERD Continue PPI. 3)Leukocytosis WBC 12,000, likely secondary to post op status. Patient denies any SOB, cough, sputum production, fevers, chills, difficulty urinating, N/V/D. 4) L4/L5 disc herniation with radiculopathy POD 1 lumbar laminectomy L4/L5. Management per orthopedics. DVT prophylaxis - per orthopedics Patient seen by Fernando Coppola PA-C, under the supervision of Dr. Blanchard. Time spent on patient care: 9 minutes. Documented by User: Dr. Macho Blanchard MD 07/19/21 11:07 Objective Data Lab / Micro Data Result Diagrams: 07/17/21 13:35 07/17/21 13:35 Charges/Coding Addendum Addendum: Dr. Blanchard: I personally reviewed the chart and examined the patient, and agree with the above findings. 50-year-old male with a history of hypertension, diet, chronic systolic and diastolic CHF presents to the hospital with chronic back pain undergoing an elective L4-L5 left laminectomy. He is doing well postoperatively, denies any significant pain rating down his legs, he does have postsurgical pain but that is doing okay. Recommend can follow-up decayed blood pressures are as blood sugars and his creatinine is at baseline. Continue with PT/OT as well as pain management per primary. Thank you for allowing us to participate in his care, we will continue to follow peripherally. Clinical time spent in all aspects of patient care: 18 minutes Visit Charges OBSV E&M: 39230 Subsequent observation care L2
[2021-07-19] MEDS: Spironolactone 25 MG Tablet PO (11:46)
[2021-07-19] MEDS: Furosemide 20 MG Tablet PO (11:47)
[2021-07-19] MEDS: Carvedilol 25 MG Tablet PO ×2 (11:47→21:12)
[2021-07-19] MEDS: Ensure Surgery 237 ML LIQUID PO ×2 (11:55→18:14)
[2021-07-19] MEDS: 0.9% Saline Lock 10 ML Syringe IV ×2 (11:55→18:20)
--- NOTE | 2021-07-19 13:29 | PCM.PN.ORT ---
Objective Data Objective Data Vital Signs: Vital Signs Temp Pulse Resp BP Pulse Ox 99.0 F 81 18 116/72 94 07/19/21 11:45 07/19/21 11:45 07/19/21 11:45 07/19/21 11:45 07/19/21 11:45 Oxygen Flow Rate (L/min) 1 Oxygen Delivery Method Room Air Weight: 219 lb Body Mass Index (BMI) 34.2 Intake & Output: Intake and Output for Last 24 Hours 07/17/21 07/18/21 07/19/21 23:59 23:59 23:59 Intake Total 3108.67 / 3558.67 2445 / 2445 Output Total 150 / 1350 2225 / 2225 Balance 2958.67 / 2208.67 220 / 220 Lab / Micro Data Result Diagrams: 07/17/21 13:35 07/17/21 13:35 Micro: Microbiology 07/17/21 13:35 Swab (Method) Nasal Screen MRSA/MSSA - Final Procedure Criteria Elective Risks - COVID COVID Risk Discussion: Postop day #1. Overall Alvaro is doing quite well. His anterior thigh pain is all gone. He still has numbness of course as expected and his quad is still quite weak as expected. I told him and his know well that we will consider getting a muscle stimulator for home. He had 40 cc out in his Hemovac this morning around 6 and at noon he had another 30. That and the fact that he has quite a bit of pain in his low back makes me want to leave him in 1 more day. We will remove the drain tomorrow and change his dressing and he will probably be going home. Note that he used a walker to walk around the entire floor a couple of times already. He will need a walker for home. I will see him again tomorrow morning.
--- NOTE | 2021-07-19 14:24 | CASEMGMT ---
RN GLENNA NOTE: Pt being discharged home. Script obtained from Dr Deng for curtis. LEIDY CM to room to talk w/pt and who is at bedside. states 1st choice of DME co is [employer]. Script faxed to [facility] at this time. Call placed to [facility] and spoke w/Franky. Walker to be delivered to pt's room today. Karolina ZHOUN LEIDY CM
[2021-07-19] MEDS: tiZANidine HCl 2 MG Tablet 4 MG PO (21:12)
[2021-07-19] MEDS: Zolpidem Tartrate 5 MG Tablet PO (22:20)
[2021-07-20] VITALS (30 sets, daily range): BP systolic 79–132; BP diastolic 53–93; PULSE 67–87; RESP 9–22; TEMP 35.8–37.1; O2SAT 93–100
[2021-07-20] MEDS: oxyCODONE 5 MG Tablet PO ×3 (03:47→22:29)
[2021-07-20] MEDS: 0.9% Saline Lock 10 ML Syringe IV (03:48)
[2021-07-20 06:06] LABS: Absolute Lymphocyte Count 1.76 X10^3/uL (0.83-4.51); Absolute Neutrophil Count 8.5 X10^3/uL (2.0-7.7); Basophil# 0.05 X10^3/uL; Basophil% 0.4 % (0-1); Eosinophil# 0.23 X10^3/uL; Hematocrit 40.8 % (40-54); Lymphocyte # 1.76 X10^3/ul (0.83-4.51); Lymphocyte % 15.2 % (19-41); Mean Corp Hgb Conc 31.9 g/dL (32-36); Mean Corpuscular Volume 100.5 fL (80-94); Mean Platelet Vol. 8.8 fl (6.2-12.0); Monocyte% 7.8 % (0-10); NRBC Flagged by Analyzer 0 % (0-5); Neutrophil # 8.53 X10^3/uL (2.7-7.7); Neutrophil % 73.6 % (47-70); Platelet Count 175 K/mm3 (150-450); RBC Distribution Width CV 12.1 % (11.6-14.6); RBC Distribution Width SD 45.1 fl (35.1-43.9); Red Blood Count 4.06 M/mm3 (4.6-6.2); White Blood Count 11.6 K/mm3 (4.4-11.0)
[2021-07-20 06:27] LABS: Anion Gap 3 (5-15); BUN 37 mg/dL (7-18); BUN/Creat Ratio 42.5 RATIO (10-20); Calcium,Total 8.7 mg/dL (8.5-10.1); Chloride 104 mmol/L (98-107); Creatinine, Serum 0.87 mg/dL (0.70-1.30); EST Glomerular Filtration Rate 98 mL/min (>60); Est Glom Filt Rate - Afr Amer 118 mL/min (>60); Estimated Creatinine Clearance 93.92 ml/min; Glucose 168 mg/dL (74-106); Potassium 4.7 mmol/L (3.5-5.1); Sodium Level 137 mmol/L (136-145)
[2021-07-20] MEDS: Acetaminophen 500 MG Tablet 1000 MG PO ×3 (06:36→22:28)
[2021-07-20] MEDS: Aspirin 325 MG Tablet PO (08:30)
[2021-07-20] MEDS: Morphine 4 MG/ML Syringe IV (08:40)
--- NOTE | 2021-07-20 08:40 | RAD_ITS ---
STUDY: X-RAY CHEST REASON FOR EXAM: Male, 50 years old. STEMI TECHNIQUE: Single AP portable view of the chest. COMPARISON: July 17, 2021 chest x-ray FINDINGS: There is a right side pacemaker defibrillator with leads overlying the heart. The lungs are clear and expanded. There is no demonstrated pleural abnormality. There is mild cardiac enlargement. Normal mediastinum and karen. Normal visualized pulmonary arteries. Normal visualized aortic arch and descending thoracic aorta. Normal visualized thoracic spine. Normal visualized ribs, clavicles, and shoulders. There is no demonstrated abnormality of the visualized soft tissue structures of the upper abdomen. RAD/Chest 1 View IMPRESSION: Pacer defibrillator. Borderline cardiac enlargement. No demonstrated acute cardiopulmonary process. Electronically Signed: Lizett Adame MD at 9:22 EDT ,
--- NOTE | 2021-07-20 08:45 | NURSING ---
Morphine just recently given and pt states he is starting to feel better. 02 at 2L Nc maintained. Pt is getting clipper prepped by ELIZABETH Perez from PCU. Pts at bedside as she came in shortly after pt returned to bed and was having chest pain.
[2021-07-20 08:46] LABS: Bedside Glucose 118 mg/dL (74-106)
[2021-07-20 09:08] LABS: Troponin-I HS 18 pg/mL (3.0-78.0)
--- NOTE | 2021-07-20 09:13 | NURSING ---
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
--- NOTE | 2021-07-20 10:01 | EKG12_ITS ---
Test Reason : STEMI Blood Pressure : / mmHG Vent. Rate : 077 BPM Atrial Rate : 077 BPM P-R Int : 158 ms QRS Dur : 104 ms QT Int : 396 ms P-R-T Axes : 059 -26 -01 degrees QTc Int : 448 ms Normal sinus rhythm Normal ECG When compared with ECG of 20-JUL-2021 08:21, ST no longer depressed in Inferior leads ST no longer elevated in Anterior leads Confirmed by DANUTA TEJADA, AR ([id number]), editorial director NOEMY RAMOS ([id number]) on 07/26/2021 9:33:11 AM Referred By: Carson Deng Confirmed By:AR TIPTON MD
--- NOTE | 2021-07-20 10:19 | PCM.OP.PRO ---
Procedure Report Date of Procedure: 07/20/21 Cardiac cath right patient report; 1. Selective left coronary angiography 2. Selective right cholangiography 3. Measurement of LVEDP 4. Left ventriculogram 5. Placement of TR band to close the right radial artery arteriotomy site. Consent; Risk and benefit of the procedure explained in detail patient elected to proceed informed consent obtained. Preprocedure diagnosis; 50-year-old patient who had herniated disc L4-5 with severe left for radiculopathy with intractable pain and neurological deficit. Patient underwent lumbar laminectomy L4-5 on the left Patient was walking on the surgical floor started to develop symptoms of chest pain diaphoretic EKG was obtained by the nursing staff which showed evidence of ST elevation in the anterior. This patient had history of viral myocarditis with reduced LV function ICD biventricular pacer with the last echocardiogram showed improvement in EF to around 40 to 45%. Patient continues to have symptoms of chest pain he was given aspirin and was brought to the emergency to the Automated Access Systems Technician. I did discuss with the hospitalist is a high risk of this patient in case he needs intervention in the LAD due to the recent laminectomy and the risk of hematoma and risk of cord compression. And I also requested to discuss this with the surgeon Dr. Deng. This patient had a history of viral myocarditis with systolic dysfunction requiring ICD/pacer implant, recently noted improvement in his LV function by echocardiogram with ejection fraction in the range of 40-45%. Diagnostic catheter used and access; 1. Right radial artery access and the usual for cocktail of heparin, nitroglycerin and verapamil 2. Diagnostic 5 Mozambican Sobieski catheter 3. 5 Mozambican JL 4 4. 5 Mozambican angled pigtail Procedure in detail; Patient was brought to the Automated Access Systems Technician as an emergency for a STEMI in the LAD distribution/anterior ST elevation with some reciprocal change in the inferior lead He had symptoms of chest pain while he was in the Automated Access Systems Technician symptoms of chest pain resolved. Right radial artery prepped and draped in the usual sterile fashion and 6 Mozambican sheath placed in the right radial artery And under fluoroscopic guidance using a Glidewire to proceed with 5 Mozambican Sobieski catheter cannulated the left main and multiple views of the left carotid system were obtained Same catheter was used to cannulate right coronary artery and selective RCA angiography in SANCHEZ cranial was obtained Following this catheter exchanged for 5 Mozambican JL 4 selective angiography of left coronary system were obtained again to visualize the left anterior descending artery in better views and following this the catheter exchanged for 5 Mozambican pigtail catheter angle pigtail across the aortic valve placed in the mid left ventricle and used a total of 25 cc of contrast for left ventriculogram and measurement of LVEDP Following this pullback pressure was measured and angiographic views were reviewed Findings hemodynamic; Diastolic function preserved Ejection fraction is around 55% No segmental wall motion abnormality noted ICD lead need noted in the RV and pacer lead in the RA LVEDP measured within normal No mitral regurgitation noted And no systolic gradient across aortic valve. Finding of coronary angiography; 1. Left main coronary artery normal angiographically, short, bifurcating into LAD and the left circumflex 2. Proximal LAD had nonobstructive atherosclerosis of around 10 to 20%, MALIHA-3 flow noted in the LAD which is a large vessel reaching all the way to the apex With a large diagonal and abundant septal branches 3. Left circumflex artery moderate size vessel normal angiographically #4 RCA is large dominant and normal to graphically Conclusion and recommendation; This patient developed symptoms of chest pain with ST elevation in the anterior lead the cardiac catheterization demonstrated nonobstructive atherosclerosis of the proximal LAD clinical impression likely spasm with ruptured plaque which recannulized with maintenance of MALIHA-3 flow in the LAD distribution Patient is a very high risk patient 1. Patient will be admitted to the intensive care unit and to be monitored by the online program coordinator and I will continue to monitor and follow-up clinically 2. Would recommend dual antiplatelet aspirin and Plavix if okay with surgeon Dr. Deng 3. Also will start on long-acting nitrate 4. High-dose statin atorvastatin 5. 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 Ana Luna MD,FAC,[facility]
--- NOTE | 2021-07-20 10:42 | PCM.PN.HOSP ---
Subjective Subjective Developed chest pain this morning EKG demonstrated a anterior ST elevations however troponin was only 18. He was taken to the Conveyor Maintenance Mechanic where he had a normal cardiac cath. It appears that he had a coronary artery spasm with a ruptured plaque no intervention was performed however he was transferred to the ICU for closer monitoring given the need for heparin during the procedure and possibility for postoperative bleed from his surgical site. Objective Data Objective Data Vital Signs: Vital Signs Temp Pulse Resp BP Pulse Ox 98.8 F 76 18 122/72 H 100 07/20/21 08:15 07/20/21 10:15 07/20/21 09:00 07/20/21 09:00 07/20/21 08:41 Oxygen Flow Rate (L/min) 2 Oxygen Delivery Method Nasal Cannula Weight: 219 lb Body Mass Index (BMI) 34.2 Intake & Output: Intake and Output for Last 24 Hours 07/19/21 07/20/21 07/21/21 03:59 03:59 03:59 Intake Total 3608.67 / 3608.67 1945 / 1945 Output Total 1350 / 1350 1035 / 1035 Balance 2258.67 / 2258.67 910 / 910 Lab / Micro Data Result Diagrams: 07/20/21 05:43 07/20/21 05:43 Labs: Laboratory Results - last 24 hr 07/20/21 05:43: WBC 11.6 H, RBC 4.06 L, Hgb 13.0, Hct 40.8, MCV 100.5 H, MCH 32.0, MCHC 31.9 L, RDW Std Deviation 45.1 H, RDW Coeff of Joi 12.1, Plt Count 175, MPV 8.8, Immature Gran % (Auto) 1.000 H, Neut % (Auto) 73.6 H, Lymph % (Auto) 15.2 L, [place] % (Auto) 7.8, Eos % (Auto) 2.0, Baso % (Auto) 0.4, Absolute Neuts (auto) 8.5 H, Absolute Lymphs (auto) 1.76, Nucleated RBC % 0 07/20/21 05:43: Sodium 137, Potassium 4.7, Chloride 104, Carbon Dioxide 30.0, Anion Gap 3 L, BUN 37 H, Creatinine 0.87, Estim Creat Clear Calc 93.92, Est GFR (MDRD) Af Amer 118, Est GFR (MDRD) Non-Af 98, BUN/Creatinine Ratio 42.5 H, Glucose 168 H, Calcium 8.7 07/20/21 08:28: POC Glucose 118 H 07/20/21 08:45: Troponin I High Sens 18 Micro: Microbiology 07/17/21 13:35 Swab (Method) Nasal Screen MRSA/MSSA - Final Radiography Diagnostic Testing: Radiology Impression Chest X-Ray 07/20/21 08:40 IMPRESSION: Pacer defibrillator. Borderline cardiac enlargement. No demonstrated acute cardiopulmonary process. Electronically Signed: Lizett Adame MD at 9:22 EDT , Physical Exam Const alert, oriented x3 and no apparent distress General Appearance: cooperative HEENT normocephalic and moist oral mucous membranes Eyes PERRL, EOMs intact bilaterally and conjunctivae normal Neck supple and no JVD Resp normal respiratory effort, no retractions, no use of accessory muscles and clear to auscultation bilaterally Auscultation: Negative for crackles, rales, rhonchi or wheezes Cardio regular rate, regular rhythm, S1 normal heart sound, S2 normal heart sound and no murmurs GI soft to palpation, non-tender and non-distended; Negative for hepatosplenomegaly Extremity no clubbing, cyanosis or edema Skin no rashes or lesions noted Neuro no focal motor deficits and no sensory deficits noted Psych affect normal Appearance: appropriate Assessment & Plan Assessment/Plan (1) Non-ischemic cardiomyopathy: (2) Secondary pulmonary arterial hypertension: (3) Chronic combined systolic and diastolic CHF (congestive heart failure): PLAN: 1. L4-5 disc herniation with radiculopathy status postlaminectomy ? Pain medication per primary ? PT/OT ? Continue with the drain in place given the amount of blood he had yesterday as well as the heparin given his during his cath today 2. Non-STEMI and a history of viral myocarditis with a nonischemic systolic cardiomyopathy ? He did have a heart cath today after significant chest pain, troponin was normal. ? Heart cath demonstrates no coronary artery disease and no intervention was done ? He does have an ICD in place because of his EF at that time was 12%, per heart cath he has a normal EF ? We will continue with his home cardiac medications ? Continue with as is as a stat and Procardia allergy ? We will also continue with his SGLT2 inhibitor given his previous cardiomyopathy 3. GERD ? Stable ? Continue with p.o. DVT: SCDs Charges/Coding Visit Charges OBSV E&M: 69950 Subsequent observation care L2
[2021-07-20] MEDS: 0.9% Normal Saline 1,000 ML 75 ML IV (11:00)
[2021-07-20] MEDS: Carvedilol 25 MG Tablet PO ×2 (11:32→22:28)
[2021-07-20] MEDS: Pantoprazole Sodium 20 MG Tablet PO (11:33)
[2021-07-20] MEDS: Spironolactone 25 MG Tablet PO (11:33)
[2021-07-20] MEDS: SACUBITRIL/VALSARTAN 97-103 MG TABLET 1 EACH PO ×2 (11:34→22:28)
[2021-07-20] MEDS: Empagliflozin 10 MG Tablet PO (11:36)
--- NOTE | 2021-07-20 11:45 | EKG12_ITS ---
Test Reason : CP Blood Pressure : / mmHG Vent. Rate : 066 BPM Atrial Rate : 066 BPM P-R Int : 158 ms QRS Dur : 092 ms QT Int : 390 ms P-R-T Axes : 056 -32 -27 degrees QTc Int : 408 ms Normal sinus rhythm Left axis deviation ST elevation consider anterior injury or acute infarct * ACUTE [place] Abnormal ECG Confirmed by DANUTA TEJADA, AR ([id number]), editorial intern NOEMY RAMOS ([id number]) on 07/22/2021 1:08:46 PM Referred By: Carson Deng Confirmed By:AR TIPTON MD
[2021-07-20] MEDS: Ensure Surgery 237 ML LIQUID PO ×2 (12:21→17:43)
[2021-07-20] MEDS: tiZANidine HCl 2 MG Tablet 4 MG PO ×2 (12:21→22:28)
[2021-07-20] MEDS: Clopidogrel Bisulfate 75 MG Tablet PO (13:06)
--- NOTE | 2021-07-20 16:22 | PN.ORTHO_ITS ---
Subjective Subjective Postop day #2. 30-minute episode of chest pain and diaphoresis this morning which scared the entire staff. He can down in a cath was done. Merchandise Clerk felt that he had a small piece of plaque to let loose but apparently he did not have a myocardial infarction in certainly did not have PE. Notes after the symptoms began they went completely away. We went ahead and remove the drain is only 15 cc were taken out of the drain over the course of the night. Hours now since he had the heparin for the cath and with the short half-life of heparin we felt that it was safe to take out the drain. Likely from in more than 48 hours. Vision is dry and healing well. Discussed the postop care with the patient and his Alonso. Thing is to come off on Thursday and on Thursday he can start showering. I discussed the case with and we agreed that he probably will not go home until Thursday. He relates that his quadriceps pain on the left is basically completely gone and the numbness is already better. Eventually we will need muscle stimulation for home use to strengthen his left quadriceps mechanism. I will probably see him again Thursday before he goes home. This is Dr. Deng dictating. Objective Data Objective Data Vital Signs: Vital Signs Temp Pulse Resp BP Pulse Ox 96.5 F L 73 13 90/61 95 07/20/21 12:00 07/20/21 14:00 07/20/21 14:00 07/20/21 14:00 07/20/21 14:00 Oxygen Flow Rate (L/min) 2 Oxygen Delivery Method Room Air Weight: 219 lb Body Mass Index (BMI) 34.2 Intake & Output: Intake and Output for Last 24 Hours 07/18/21 07/19/21 07/20/21 23:59 23:59 23:59 Intake Total 3108.67 / 3558.67 2445 / 2445 Output Total 150 / 1350 2235 / 2235 315 / 315 Balance 2958.67 / 2208.67 210 / 210 -315 / -315 Lab / Micro Data Result Diagrams: 07/20/21 05:43 07/20/21 05:43 Labs: Laboratory Results - last 24 hr 07/20/21 05:43: WBC 11.6 H, RBC 4.06 L, Hgb 13.0, Hct 40.8, MCV 100.5 H, MCH 32.0, MCHC 31.9 L, RDW Std Deviation 45.1 H, RDW Coeff of Joi 12.1, Plt Count 175, MPV 8.8, Immature Gran % (Auto) 1.000 H, Neut % (Auto) 73.6 H, Lymph % (Auto) 15.2 L, [place] % (Auto) 7.8, Eos % (Auto) 2.0, Baso % (Auto) 0.4, Absolute Neuts (auto) 8.5 H, Absolute Lymphs (auto) 1.76, Nucleated RBC % 0 07/20/21 05:43: Sodium 137, Potassium 4.7, Chloride 104, Carbon Dioxide 30.0, Anion Gap 3 L, BUN 37 H, Creatinine 0.87, Estim Creat Clear Calc 93.92, Est GFR (MDRD) Af Amer 118, Est GFR (MDRD) Non-Af 98, BUN/Creatinine Ratio 42.5 H, Glucose 168 H, Calcium 8.7 07/20/21 08:28: POC Glucose 118 H 07/20/21 08:45: Troponin I High Sens 18 Micro: Microbiology 07/17/21 13:35 Swab (Method) Nasal Screen MRSA/MSSA - Final Radiography Diagnostic Testing: Radiology Impression Chest X-Ray 07/20/21 08:40 IMPRESSION: Pacer defibrillator. Borderline cardiac enlargement. No demonstrated acute cardiopulmonary process. Electronically Signed: Lizett Adame MD at 9:22 EDT Reading Location ID and State: [facility] / [place] Tel , Service support ,
[2021-07-20] MEDS: Atorvastatin Calcium 40 MG Tablet PO (22:28)
[2021-07-20] MEDS: Zolpidem Tartrate 5 MG Tablet PO (22:29)
[2021-07-21] VITALS (36 sets, daily range): BP systolic 62–137; BP diastolic 33–97; PULSE 73–87; RESP 11–21; TEMP 35.9–36.3; O2SAT 91–100
[2021-07-21 04:44] LABS: Absolute Neutrophil Count 7.4 X10^3/uL (2.0-7.7); Basophil# 0.05 X10^3/uL; Basophil% 0.5 % (0-1); Eosinophil# 0.32 X10^3/uL; Eosinophils% 3.1 % (0-5); Hematocrit 39.7 % (40-54); Hemoglobin 12.9 g/dL (13.0-16.5); Lymphocyte % 16.2 % (19-41); Mean Corp Hgb Conc 32.5 g/dL (32-36); Mean Corpuscular Hgb 31.9 pg (27.0-32.0); Mean Corpuscular Volume 98.3 fL (80-94); Mean Platelet Vol. 8.7 fl (6.2-12.0); Monocyte# 0.85 X10^3/uL; Monocyte% 8.1 % (0-10); NRBC Flagged by Analyzer 0 % (0-5); Neutrophil # 7.39 X10^3/uL (2.7-7.7); Neutrophil % 70.6 % (47-70); Platelet Count 172 K/mm3 (150-450); RBC Distribution Width CV 12.1 % (11.6-14.6); RBC Distribution Width SD 43.8 fl (35.1-43.9); Red Blood Count 4.04 M/mm3 (4.6-6.2); White Blood Count 10.5 K/mm3 (4.4-11.0)
[2021-07-21 04:57] LABS: Anion Gap 4 (5-15); BUN 27 mg/dL (7-18); BUN/Creat Ratio 40.6 RATIO (10-20); Calcium,Total 8.9 mg/dL (8.5-10.1); Chloride 105 mmol/L (98-107); Creatinine, Serum 0.66 mg/dL (0.70-1.30); EST Glomerular Filtration Rate 134 mL/min (>60); Est Glom Filt Rate - Afr Amer 162 mL/min (>60); Glucose 109 mg/dL (74-106); Potassium 4.6 mmol/L (3.5-5.1); Sodium Level 136 mmol/L (136-145)
[2021-07-21] MEDS: Acetaminophen 500 MG Tablet 1000 MG PO ×3 (05:13→23:00)
[2021-07-21] MEDS: 0.9% Saline Lock 10 ML Syringe IV ×2 (06:50→23:00)
[2021-07-21] MEDS: oxyCODONE 5 MG Tablet PO ×2 (06:50→20:10)
--- NOTE | 2021-07-21 08:52 | PN.HOSP_ITS ---
Subjective Subjective Doing well, no issues overnight. Back pain is improving and denies any further chest pain or shortness of breath Objective Data Objective Data Vital Signs: Vital Signs Temp Pulse Resp BP Pulse Ox 97.1 F L 73 16 106/77 92 07/21/21 00:00 07/21/21 07:40 07/21/21 06:00 07/21/21 06:00 07/21/21 06:00 Oxygen Flow Rate (L/min) 4 Oxygen Delivery Method Room Air Weight: 219 lb 12.814 oz Body Mass Index (BMI) 34.2 Intake & Output: Intake and Output for Last 24 Hours 07/20/21 07/21/21 07/22/21 03:59 03:59 03:59 Intake Total 1945 / 1945 603.75 / 603.75 200 / 200 Output Total 1035 / 1035 1015 / 1015 1000 / 1000 Balance 910 / 910 -411.25 / -411.25 -800 / -800 Lab / Micro Data Result Diagrams: 07/21/21 04:35 07/21/21 04:35 Labs: Laboratory Results - last 24 hr 07/20/21 08:45: Troponin I High Sens 18 07/21/21 04:35: WBC 10.5, RBC 4.04 L, Hgb 12.9 L, Hct 39.7 L, MCV 98.3 H, MCH 31.9, MCHC 32.5, RDW Std Deviation 43.8, RDW Coeff of Joi 12.1, Plt Count 172, MPV 8.7, Immature Gran % (Auto) 1.500 H, Neut % (Auto) 70.6 H, Lymph % (Auto) 16.2 L, Mchenry % (Auto) 8.1, Eos % (Auto) 3.1, Baso % (Auto) 0.5, Absolute Neuts ( auto) 7.4, Absolute Lymphs (auto) 1.70, Nucleated RBC % 0 07/21/21 04:35: Sodium 136, Potassium 4.6, Chloride 105, Carbon Dioxide 27.0, Anion Gap 4 L, BUN 27 H, Creatinine 0.66 L, Estim Creat Clear Calc 123.80, Est GFR (MDRD) Af Amer 162, Est GFR (MDRD) Non-Af 134, BUN/Creatinine Ratio 40.6 H, Glucose 109 H, Calcium 8.9 Micro: Microbiology 07/17/21 13:35 Swab (Method) Nasal Screen MRSA/MSSA - Final Radiography Diagnostic Testing: Radiology Impression Chest X-Ray 07/20/21 08:40 IMPRESSION: Pacer defibrillator. Borderline cardiac enlargement. No demonstrated acute cardiopulmonary process. Electronically Signed: Lizett Adame MD at 9:22 EDT , Physical Exam Const alert, oriented x3 and no apparent distress General Appearance: cooperative HEENT normocephalic and moist oral mucous membranes Eyes PERRL, EOMs intact bilaterally and conjunctivae normal Neck no lymphadenopathy, supple and no JVD Resp normal respiratory effort, no retractions, no use of accessory muscles and clear to auscultation bilaterally Auscultation: Negative for crackles, rales, rhonchi or wheezes Cardio regular rate, regular rhythm, S1 normal heart sound, S2 normal heart sound and no murmurs GI soft to palpation, non-tender and non-distended; Negative for hepatosplenomegaly Extremity no clubbing, cyanosis or edema Skin no rashes or lesions noted Neuro no focal motor deficits and no sensory deficits noted Psych affect normal Appearance: appropriate Assessment & Plan Assessment/Plan (1) Non-ischemic cardiomyopathy: (2) Secondary pulmonary arterial hypertension: (3) Chronic combined systolic and diastolic CHF (congestive heart failure): PLAN: 1. L4-5 disc herniation with radiculopathy status postlaminectomy ? Pain medication per primary ? PT/OT ? Drain was removed yesterday per neurosurgery is not having any further issues ? He is okay for discharge from a medical perspective 2. Non-STEMI and a history of viral myocarditis with a nonischemic systolic cardiomyopathy ? He did have a heart cath today after significant chest pain, troponin was normal. ? Heart cath demonstrates no coronary artery disease and no intervention was done ? He does have an ICD in place because of his EF at that time was 12%, per heart cath he has a normal EF ? Continue with most of his home cardiac medications, he was also started on Imdur and given his episodes of hypotension will decrease his Coreg to 12-1/2 from 25 as his EF has normalized ? Continue with aspirin and Plavix as well as Lipitor ? We will also continue with his SGLT2 inhibitor given his previous cardiomyopathy 3. GERD ? Stable ? Continue with p.o. DVT: SCDs Charges/Coding Visit Charges OBSV E&M: 81725 Subsequent observation care L2
[2021-07-21] MEDS: Clopidogrel Bisulfate 75 MG Tablet PO (09:19)
[2021-07-21] MEDS: Pantoprazole Sodium 20 MG Tablet PO (09:19)
[2021-07-21] MEDS: Spironolactone 25 MG Tablet PO (09:19)
[2021-07-21] MEDS: Aspirin 81 MG TAB.CHEW PO (09:19)
[2021-07-21] MEDS: Furosemide 20 MG Tablet PO (09:20)
[2021-07-21] MEDS: SACUBITRIL/VALSARTAN 97-103 MG TABLET 1 EACH PO ×2 (09:20→23:00)
[2021-07-21] MEDS: Empagliflozin 10 MG Tablet PO (09:20)
[2021-07-21] MEDS: tiZANidine HCl 2 MG Tablet 4 MG PO ×2 (09:21→23:00)
[2021-07-21] MEDS: Carvedilol 12.5 MG Tablet PO (09:22)
[2021-07-21] MEDS: Ensure Surgery 237 ML LIQUID PO ×2 (09:43→17:15)
[2021-07-21 14:04] LABS: Troponin-I HS 76 pg/mL (3.0-78.0)
--- NOTE | 2021-07-21 15:03 | CON.PCM.CA_ITS ---
Assessment & Plan Assessment/Plan (1) Lumbosacral radiculopathy at L4: (2) Herniated nucleus pulposus, L4-5 left: (3) Non-ischemic cardiomyopathy: (4) Chronic combined systolic and diastolic CHF (congestive heart failure): (5) STEMI (ST elevation myocardial infarction): PLAN: 50-year-old patient with lumbar and sacral radiculopathy, herniated nucleus pulposis L4-5 Post laminectomy. Patient developed symptoms of chest pain with diaphoresis yesterday while working with physical therapy EKG showed evidence of STEMI/anterior Patient taken to the [facility]ist Patency of LAD demonstrated with normal LV function Subsequent cardiac enzymes were within normal Patient treated with medical therapy with dual antiplatelet Occluding Plavix aspirin and atorvastatin As well he was started on long-acting nitrate noted his blood pressure dropped Improved with normal saline and discontinuation of the Imdur and beta-angela. 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 Cardiac care plan recommendations; 1. Patient cardiac status stable will resume beta-angela and low-dose 2. To continue dual antiplatelet therapy with Plavix and aspirin 3. Echocardiogram to be done tomorrow 4. We will be seen by Dr. Dangelo for continuation of cardiac care during this admission Patient and would like to follow-up with their primary monitor technician on discharge. HPI Consult Data Date of Consult: 07/21/21 HPI Narrative Reason for Consultation: stemi/POST Laminectomy HPI Narrative: TAMMY WALTERS, is a 50 M who presents [facility] Medical History (Updated 07/21/21 @ 15:[address] Ana Luna MD) Alcohol use Anxiety and depression Back pain Cardiology follow-up encounter Chronic combined systolic and diastolic CHF (congestive heart failure) CPAP (continuous positive airway pressure) dependence Former smoker Gastric reflux History of CHF (congestive heart failure) History of echocardiogram History of kidney stones History of pacemaker History of pain when walking History of seizure History of steroid therapy History of stress test Hx of hidradenitis suppurativa Hypertension Leg cramps Migraine headache Non-ischemic cardiomyopathy Obesity Secondary pulmonary arterial hypertension Shortness of breath on exertion Wears glasses Home Medications lisdexamfetamine 50 mg capsule 50 mg PO QAM cap 05/03/19 [History Last Taken Unknown] oxycodone-acetaminophen [Percocet] 1 tab PO Q6H PRN 3 Days #12 tab 07/07/21 [Rx Last Taken Unknown] Entresto 1 tab PO BID 07/17/21 [History Last Taken 07/18/21] Farxiga 5 mg PO DAILY 07/17/21 [History Last Taken Unknown] ascorbic acid (vitamin C) 1 g PO DAILY 07/17/21 [History Last Taken Unknown] digestive enzymes 1 cap PO DAILY 07/17/21 [History Last Taken Unknown] esomeprazole magnesium [Nexium] 20 mg PO DAILY 07/17/21 [History Last Taken 10/31] furosemide [Lasix] 20 mg PO DAILY 07/17/21 [History Last Taken Unknown] multivitamin 1 cap PO DAILY 07/17/21 [History Last Taken Unknown] spironolactone [Aldactone] 25 mg PO DAILY 07/17/21 [History Last Taken Unknown] tizanidine 4 mg PO BID 07/17/21 [History Last Taken Unknown] vitamin O95-khffz acid 1 tab PO DAILY 07/17/21 [History Last Taken Unknown] zinc 50 mg PO DAILY 07/17/21 [History Last Taken Unknown] aspirin 81 mg PO BREAKFAST #30 tab 07/21/21 [Rx Last Taken Unknown] atorvastatin 40 mg PO QHS #30 tab 07/21/21 [Rx Last Taken Unknown] carvedilol 12.5 mg PO BID #0 tab 07/21/21 [Rx Last Taken 07/18/21] clopidogrel 75 mg PO DAILY #30 tab 07/21/21 [Rx Last Taken Unknown] isosorbide mononitrate 30 mg PO DAILY #30 tab 07/21/21 [Rx Last Taken Unknown] Allergy/AdvReac Type Severity Reaction Status Date / Time shellfish derived AdvReac Swelling Verified 07/18/21 10:10 Family History Father Cancer esophageal Mother Thyroid disorder Brother Heart disease unsure of type Surgical History History of left heart catheterization (06/30/19) History of lithotripsy History of repair of ACL History of ureter stent Social History Smoking Status: Former smoker pack-years: 15 how long ago did patient quit smokin week ago alcohol intake: current alcohol intake frequency: a few times a week substance use type: does not use caffeine: Yes Type: carbonated beverages Number of servings: 2 and coffee Number of servings: 1 Physical Exam Narrative Patient seen and evaluated today at bedside along with the nursing staff at bedside Alert orientated sitting out in a chair comfortable not in acute distress no s ymptoms of chest pain complain of back pain 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 Examination lower extremity no clubbing no cyanosis no lower extremity edema Risk Stratification Risk Stratification Applicable: Yes Age >/= 65: No >/= 3 CAD Risk Factors (HTN, HLD, DM, family hx of CAD, or current smoker): Yes Aspirin Use in the Past 7 Days: Yes Severe Angina (>/= episodes in 24 hours): Yes EKG ST Changes >/= 0.5mm: Yes Positive Cardiac Marker: No MALIHA Risk Stratification Score: 4 MALIHA % Risk: 20% Risk Objective Data Vital Signs: Vital Signs Temp Pulse Resp BP Pulse Ox 96.6 F L 84 17 115/68 96 07/21/21 12:00 07/21/21 14:30 07/21/21 14:30 07/21/21 14:30 07/21/21 14:30 Oxygen Flow Rate (L/min) 2 Oxygen Delivery Method Room Air Weight: 219 lb 12.814 oz Body Mass Index (BMI) 34.2 Intake & Output: Intake and Output for Last 24 Hours 07/19/21 07/20/21 07/21/21 23:59 23:59 23:59 Intake Total 2445 / 2445 603.75 / 603.75 700 / 700 Output Total 2235 / 2235 315 / 1015 1800 / 1800 Balance 210 / 210 288.75 / -411.25 -1100 / -1100 Lab / Micro Data Result Diagrams: 07/21/21 04:35 07/21/21 04:35 Labs: Laboratory Results - last 24 hr 07/21/21 04:35: WBC 10.5, RBC 4.04 L, Hgb 12.9 L, Hct 39.7 L, MCV 98.3 H, MCH 31.9, MCHC 32.5, RDW Std Deviation 43.8, RDW Coeff of Joi 12.1, Plt Count 172, MPV 8.7, Immature Gran % (Auto) 1.500 H, Neut % (Auto) 70.6 H, Lymph % (Auto) 16.2 L, [place] % (Auto) 8.1, Eos % (Auto) 3.1, Baso % (Auto) 0.5, Absolute Neuts (auto) 7.4, Absolute Lymphs (auto) 1.70, Nucleated RBC % 0 07/21/21 04:35: Sodium 136, Potassium 4.6, Chloride 105, Carbon Dioxide 27.0, Anion Gap 4 L, BUN 27 H, Creatinine 0.66 L, Estim Creat Clear Calc 123.80, Est GFR (MDRD) Af Amer 162, Est GFR (MDRD) Non-Af 134, BUN/Creatinine Ratio 40.6 H, Glucose 109 H, Calcium 8.9 07/21/21 13:35: Troponin I High Sens 76 Cardiology Labs/Tests 07/21/21 04:35: WBC 10.5, RBC 4.04 L, Hgb 12.9 L, Hct 39.7 L, MCV 98.3 H, MCH 31.9, MCHC 32.5, Plt Count 172, MPV 8.7, Immature Gran % (Auto) 1.500 H, Neut % (Auto) 70.6 H, Lymph % (Auto) 16.2 L, [place] % (Auto) 8.1, Eos % (Auto) 3.1, Baso % (Auto) 0.5, Absolute Neuts (auto) 7.4, Nucleated RBC % 0 07/21/21 04:35: Sodium 136, Potassium 4.6, Chloride 105, Carbon Dioxide 27.0, Anion Gap 4 L, BUN 27 H, Creatinine 0.66 L, Est GFR (MDRD) Af Amer 162, Est GFR (MDRD) Non-Af 134, BUN/Creatinine Ratio 40.6 H, Glucose 109 H, Calcium 8.9 Rhythm: Normal sinus rhythm EKG: Resolution of ST elevation with normal sinus rhythm No significant ST?T abnormalities Cardiac Cath: Summary of left heart catheterization; Left main normal, LAD mild haziness noted in the proximal LAD with 10-20% stenosis LAD still with a very large artery reaching all the way to the apex with abundant septal branches Left circumflex normal RCA large dominant normal EF normal with no segmental wall motion abnormality and no MR and no systolic gradient across aortic valve :
[2021-07-21] MEDS: Carvedilol 3.125 MG TABLET PO (23:00)
[2021-07-21] MEDS: Atorvastatin Calcium 40 MG Tablet PO (23:00)
[2021-07-21] MEDS: Zolpidem Tartrate 5 MG Tablet PO (23:41)
[2021-07-22] VITALS (19 sets, daily range): BP systolic 77–127; BP diastolic 43–79; PULSE 74–89; RESP 12–18; TEMP 35.6–36.9; O2SAT 83–98
[2021-07-22 04:59] LABS: Troponin-I HS 51 pg/mL (3.0-78.0)
[2021-07-22] MEDS: Acetaminophen 500 MG Tablet 1000 MG PO ×2 (05:18→14:30)
--- NOTE | 2021-07-22 08:00 | ECHOD_ITS ---
Reason For Study: Abn EKG Procedure This was a 2D Doppler, Color Flow transthoracic echocardiogram. The study was technically difficult. Patient scanned supine due to recent back surgery. Exam performed portable in patient room. Left Ventricle Normal LV size. The estimated ejection fraction is 43 %. Stage 1 diastolic dysfunction. There is mild global hypokinesis of the left ventricle. Right Ventricle Normal RV size. ICD or pacer leads identified within the right ventricle. Normal systolic function. Atria Normal left atrium. Normal right atrium. Mitral Valve Normal mitral valve. Tricuspid Valve Normal tricuspid valve. Mild tricuspid valve insufficiency. Pulmonary artery systolic pressure is 26 mmHg. Aortic Valve Normal aortic valve. Pulmonic Valve Normal pulmonic valve. Great Vessels Normal aortic root. The pulmonary artery is normal size. Normal inferior vena cava. Pericardium/Pleural No pericardial effusion. MMode/2D Measurements & Calculations LVIDd: 5.2 cm IVSd: 0.90 cm Ao root diam: 2.9 cm LVIDs: 3.6 cm LVPWd: 0.90 cm RVDd: 3.3 cm FS: 30.0 % LAV(MOD-sp2): 31.7 ml LVAd ap4: 22.0 cm2 LVAd ap2: 27.6 cm2 LVLd ap4: 7.0 cm LVLd ap2: 8.6 cm EDV(MOD-sp4): 58.8 ml EDV(MOD-sp2): 77.2 ml EDV(sp4-el): 58.9 ml EDV(sp2-el): 74.8 ml LVAs ap4: 16.3 cm2 LVAs ap2: 18.4 cm2 LVLs ap4: 6.9 cm LVLs ap2: 7.3 cm ESV(MOD-sp4): 33.3 ml ESV(MOD-sp2): 40.2 ml ESV(sp4-el): 32.7 ml ESV(sp2-el): 39.3 ml EF(MOD-sp4): 43.4 % EF(MOD-sp2): 47.9 % EF(sp4-el): 44.4 % SV(MOD-sp4): 25.5 ml SV(MOD-sp2): 37.0 ml SV(sp4-el): 26.2 ml LA dimension(2D): 3.4 cm LA A4 area: 14.9 cm2 RA A4 area: 12.4 cm2 Doppler Measurements & Calculations MV E max carroll: 81.2 cm/sec Lat Peak E' Carroll: 10.3 cm/sec Med Peak E' Carroll: 10.4 cm/sec MV A max carroll: 94.1 cm/sec E/E' lat: 7.9 E/E' med: 7.8 MV E/A: 0.86 Ao V2 max: 161.0 cm/sec LV V1 max: 107.4 cm/sec PA V2 max: 137.1 cm/sec Ao max P.4 mmHg LV V1 max P.6 mmHg TR max carroll: 238.2 cm/sec TR max P.7 mmHg ECHO/Echo Complete Interpretation Summary Normal LV size. The estimated ejection fraction is 43 %. There is mild global hypokinesis of the left ventricle. Stage 1 diastolic dysfunction. Mild tricuspid valve insufficiency. Compared to previous study, the left ventricular systolic function has improved .. Ordering Physician: Ana Luna Referring Physician: Lashell Diallo Performed By: Karma Garza RDCS
--- NOTE | 2021-07-22 09:18 | PN.CARD_ITS ---
Subjective Subjective The patient seen and evaluated. Appears to be doing quite well. No major issues at this time. Did however get hypotensive with carvedilol. Objective Data Vital Signs: Vital Signs Temp Pulse Resp BP Pulse Ox 98.5 F 89 14 117/73 97 07/22/21 08:00 07/22/21 08:15 07/22/21 08:00 07/22/21 08:00 07/22/21 08:00 Oxygen Flow Rate (L/min) 2 Oxygen Delivery Method Room Air Weight: 218 lb 11.177 oz Body Mass Index (BMI) 34.2 Intake & Output: Intake and Output for Last 24 Hours 07/20/21 07/21/21 07/22/21 23:59 23:59 23:59 Intake Total 603.75 / 603.75 700 / 940 480 / 480 Output Total 315 / 1015 2400 / 2400 800 / 800 Balance 288.75 / -411.25 -1700 / -1460 -320 / -320 Lab / Micro Data Result Diagrams: 07/21/21 04:35 07/21/21 04:35 Labs: Laboratory Results - last 24 hr 07/21/21 13:35: Troponin I High Sens 76 07/22/21 04:30: Troponin I High Sens 51 Cardiology Labs/Tests Rhythm: EKG: ECHO: Stress Test: Cardiac Cath: PCI: CT Surgery: Holter monitor: EPS: PPM: CXR: Chest CT Scan: Physical Exam Const alert, oriented x3 and no apparent distress General Appearance: cooperative HEENT hearing grossly normal bilaterally Head and Scalp: atraumatic Eyes EOMs intact bilaterally Neck General: normal visual inspection Chest inspection of chest normal and palpation of chest normal Resp normal respiratory effort Auscultation: clear to auscultation bilaterally Cardio regular rate, regular rhythm, S1 normal heart sound and S2 normal heart sound Jugular Venous Distention: JVD GI normal to inspection, nondistended, normoactive bowel sounds Extremity normal capillary refill and no pedal edema Peripheral Pulses: Yes pulses 2+ throughout and femoral pulses present Skin no rashes or lesions noted Neuro oriented x3 and CN's II-XII intact bilaterally Psych Appearance: grossly normal and appropriate Assessment & Plan Assessment/Plan (1) STEMI (ST elevation myocardial infarction): PLAN: Patient had an ST elevation myocardial infarction post lumbosacral radiculopathy. Documented ST elevation was noted on the EKG but the cardiac ca theterization demonstrated no obstructive coronary disease. The above was likely secondary to spasm. There was no significant cardiac enzyme elevation. Would recommend continued aspirin Continue clopidogrel for 6 weeks and discontinue Continue high intensity statin (2) Non-ischemic cardiomyopathy: PLAN: Patient with a history of nonischemic cardiomyopathy. I would suggest that we repeat his echocardiogram and depending on the findings further recommendations will be made. (3) Chronic combined systolic and diastolic CHF (congestive heart failure): PLAN: He does have evidence of systolic and diastolic heart failure with reduced ejection fraction. He would continue on the spironolactone as well as the sacubitril and then he will be followed up by his primary physician. Thank you for allowing me to participate in the care of your patient. Please don't hesitate to call if any issues arise.
[2021-07-22] MEDS: SACUBITRIL/VALSARTAN 97-103 MG TABLET 1 EACH PO (09:56)
[2021-07-22] MEDS: Pantoprazole Sodium 20 MG Tablet PO (09:56)
[2021-07-22] MEDS: Aspirin 81 MG TAB.CHEW PO (09:57)
[2021-07-22] MEDS: Clopidogrel Bisulfate 75 MG Tablet PO (09:57)
[2021-07-22] MEDS: Empagliflozin 10 MG Tablet PO (09:57)
[2021-07-22] MEDS: Spironolactone 25 MG Tablet PO (09:57)
--- NOTE | 2021-07-22 12:10 | CASEMGMT ---
RN GLENNA NOTE: Nurse informed RN GLENNA this AM that walker had been delivered to pt's room. Karolina ZHOUN RN CM
[2021-07-22] MEDS: tiZANidine HCl 2 MG Tablet 4 MG PO (12:37)
--- NOTE | 2021-07-22 13:56 | PCM.DC ---
Discharge Instructions Diet Discharge Diet: No restrictions Activity Discharge Activity: Return to Normal Activity Lifting Restrictions: no more than 20 lbs Dressing / Incision Call your doctor if your incision/area has: Continuous Slow Oozing, Increased Pain/ Swelling and Foul Smelling Discharge Call your doctor if you observe: Fever of 101 or Higher Cleanse incision/area with: Soap & Water (daily) Follow Up Care Test Results: Test results from this visit will be discussed in further detail at your follow-up appointment, if applicable. Discharge Plan Admission Admit Date/Time: 07/18/21 11:30 Primary Reason for Your Visit: herniated lumbar disc, STEMI Attending Provider: Carson Deng Primary Care Provider: Lashell Diallo Consulting Providers: Macho Blanchard ; Fabrice Borges Discharge Orders/Prescriptions Prescriptions: New atorvastatin 40 mg Tablet 40 mg PO QHS Qty: 30 RF: 0 clopidogrel 75 mg Tablet 75 mg PO DAILY Qty: 30 RF: 0 aspirin 81 mg Tablet,Chewable 81 mg PO BREAKFAST Qty: 30 RF: 0 Continued lisdexamfetamine 50 mg capsule 50 mg PO QAM RF: 0 digestive enzymes Capsule 1 cap PO DAILY RF: 0 spironolactone [Aldactone] 25 mg Tablet 25 mg PO DAILY RF: 0 ascorbic acid (vitamin C) 1,000 mg Tablet,Chewable 1 g PO DAILY RF: 0 multivitamin Capsule 1 cap PO DAILY RF: 0 zinc 50 mg Capsule 50 mg PO DAILY RF: 0 tizanidine 4 mg Capsule 4 mg PO BID RF: 0 vitamin J11-pfuky acid 500-400 mcg Tablet 1 tab PO DAILY RF: 0 Farxiga 5 mg Tablet 5 mg PO DAILY RF: 0 Entresto 97-103 mg Tablet 1 tab PO BID RF: 0 esomeprazole magnesium [Nexium] 40 mg capsule,delayed release(DR/EC) 20 mg PO DAILY RF: 0 Discontinued oxycodone-acetaminophen [Percocet] 5-325 mg tablet 1 tab PO Q6H PRN (Reason: pain) 3 Days Qty: 12 RF: 0 furosemide [Lasix] 40 mg tablet 20 mg PO DAILY RF: 0 carvedilol 12.5 mg tablet 25 mg PO BID RF: 0 Referrals / Follow Up: Carson Deng DO [STAFF PHYSICIAN] - See Referral Note (as scheduled) Lashell Diallo MD [Primary Care Provider] - Disposition Disposition (needs filled in before D/C Order can be placed): Home, Self Care
--- NOTE | 2021-07-22 15:12 | CHAPLAIN ---
Type of Pastoral Visit _x__ Initial Visit ___ Follow-up Visit ___ On-call Visit ___ General Patient Visit ___ Spiritual Assessment ___ Family Conference ___ Bereavement ___ Rapid Response ___ Code Blue ___ Other (describe below) Pastoral Care Referral From _x__ Patient _x__ Family ___ Nurse ___ Physician ___ Spinner [employer] ___ Atm Manager ___ Other (describe below) Sacrament/Intervention _x__ Active listening ___ Anointing ___ Mormon ___ Bereavement ___ Communion ___ Maryse exploration ___ ___ Life review _x__ Prayer ___ Reconciliation ___ Sacrament of Sick _x__ Supportive presence ___ Wedding ___ Other (describe below) Pastoral Comments patient explains that he really just wants to go home and I am feeling fine really; pt and spouse (employee here) both welcome prayer and presence; pt waiting for decisions to be made and discharge paperwork
--- NOTE | 2021-07-22 16:06 | DS.PCM_ITS ---
Providers Date of Admission: 07/18/21 Primary Care Physician: Dr. Lashell Diallo MD Consultations 07/18/21 15:15 Consult: Hospitalist Routine Consulting Provider: Fabrice Borges Reason for Consult: Medical Management EMERGENT Consult: No MD Notified: Yes Date Notified: 07/18/21 Time Notified: 17:04 Method of Notification: Verbal Reason For Visit: NSTEMI Diagnosis Discharge Diagnosis (1) STEMI (ST elevation myocardial infarction): Status: Acute Code(s): I21.3 - ST elevation (STEMI) myocardial infarction of unspecified site (2) Non-ischemic cardiomyopathy: Status: Chronic Code(s): I42.8 - Other cardiomyopathies (3) Chronic combined systolic and diastolic CHF (congestive heart failure): Status: Chronic Code(s): I50.42 - Chronic combined systolic (congestive) and diastolic (congestive) heart failure Medications at Discharge Home Medications lisdexamfetamine 50 mg capsule 50 mg PO QAM cap 05/03/19 Entresto 1 tab PO BID 07/17/21 Farxiga 5 mg PO DAILY 07/17/21 ascorbic acid (vitamin C) 1 g PO DAILY 07/17/21 digestive enzymes 1 cap PO DAILY 07/17/21 esomeprazole magnesium [Nexium] 20 mg PO DAILY 07/17/21 multivitamin 1 cap PO DAILY 07/17/21 spironolactone [Aldactone] 25 mg PO DAILY 07/17/21 tizanidine 4 mg PO BID 07/17/21 vitamin Y78-ecegc acid 1 tab PO DAILY 07/17/21 zinc 50 mg PO DAILY 07/17/21 aspirin 81 mg PO BREAKFAST #30 tab 07/21/21 atorvastatin 40 mg PO QHS #30 tab 07/21/21 clopidogrel 75 mg PO DAILY #30 tab 07/21/21 Weight / BMI Weight Weight: 218 lb 11.177 oz Body Mass Index (BMI) 34.2 ABG / Lab / Microbiology Data Result Diagrams: 07/21/21 04:35 07/21/21 04:35 Laboratory: Laboratory Results - last 24 hr 07/22/21 04:30: Troponin I High Sens 51 Microbiology: Microbiology 07/17/21 13:35 Swab (Method) Nasal Screen MRSA/MSSA - Final Radiography Diagnostic Testing: Radiology Impression Echocardiogram 07/22/21 08:00 Interpretation Summary Normal LV size. The estimated ejection fraction is 43 %. There is mild global hypokinesis of the left ventricle. Stage 1 diastolic dysfunction. Mild tricuspid valve insufficiency. Compared to previous study, the left ventricular systolic function has improved.. Ordering Physician: Ana Luna Referring Physician: Lashell Diallo Performed By: Karma Garza RDCS D/C Instructions Discharge Diet: No restrictions Call your doctor if your incision/area has: Continuous Slow Oozing, Increased Pain/ Swelling and Foul Smelling Discharge Call your doctor if you observe: Fever of 101 or Higher Cleanse incision/area with: Soap & Water (daily) Meaningful Use Info Meaningful Use Diagnoses (Choose all that apply): AMI AMI/Post PCI/Angioplasty Aspirin given w/in 24hrs of arrival?: Yes ASA at discharge?: Yes Antiplatelet Therapy at Discharge:: No Statins at discharge?: Yes Haider/ARB at discharge?: Yes Beta Shaq at discharge?: No Reason Beta Shaq not ordered:: Allergy Done w/ Acute [place] measure.: Yes Discharge Plan Admission Admit Date/Time: 07/18/21 11:30 Primary Reason for Your Visit: herniated lumbar disc, STEMI Attending Provider: Carson Deng Primary Care Provider: Lashell Diallo Consulting Providers: Macho Blanchard Mark Discharge Orders/Prescriptions Prescriptions: New atorvastatin 40 mg Tablet 40 mg PO QHS Qty: 30 RF: 0 clopidogrel 75 mg Tablet 75 mg PO DAILY Qty: 30 RF: 0 aspirin 81 mg Tablet,Chewable 81 mg PO BREAKFAST Qty: 30 RF: 0 Continued lisdexamfetamine 50 mg capsule 50 mg PO QAM RF: 0 digestive enzymes Capsule 1 cap PO DAILY RF: 0 spironolactone [Aldactone] 25 mg Tablet 25 mg PO DAILY RF: 0 ascorbic acid (vitamin C) 1,000 mg Tablet,Chewable 1 g PO DAILY RF: 0 multivitamin Capsule 1 cap PO DAILY RF: 0 zinc 50 mg Capsule 50 mg PO DAILY RF: 0 tizanidine 4 mg Capsule 4 mg PO BID RF: 0 vitamin P20-cllhq acid 500-400 mcg Tablet 1 tab PO DAILY RF: 0 Farxiga 5 mg Tablet 5 mg PO DAILY RF: 0 Entresto 97-103 mg Tablet 1 tab PO BID RF: 0 esomeprazole magnesium [Nexium] 40 mg capsule,delayed release(DR/EC) 20 mg PO DAILY RF: 0 Discontinued oxycodone-acetaminophen [Percocet] 5-325 mg tablet 1 tab PO Q6H PRN (Reason: pain) 3 Days Qty: 12 RF: 0 furosemide [Lasix] 40 mg tablet 20 mg PO DAILY RF: 0 carvedilol 12.5 mg tablet 25 mg PO BID RF: 0 Referrals / Follow Up: Carson Deng DO [STAFF PHYSICIAN] - See Referral Note (as scheduled) Lashell Diallo MD [Primary Care Provider] - Disposition Disposition (needs filled in before D/C Order can be placed): Home, Self Care
[2021-07-22 19:30] LABS: Hepatitis A AB, Total Negative (Negative)
--- NOTE | 2021-07-22 20:12 | PCM.PN.HOSP ---
Subjective Subjective Patient was seen and examined today initially in ICU, patient had a STEMI over the weekend, he was seen by cardiology today who requested an echocardiogram be performed. Patient appears medically stable at this time and he was transferred to PCU for continued care. Patient underwent a heart catheterization this weekend which showed no evidence of acute occlusion, it was theorized the patient had coronary vasospasm. Echocardiogram today was completed and it showed an EF of 43%. Objective Data Objective Data Vital Signs: Vital Signs Temp Pulse Resp BP Pulse Ox 98.2 F 87 18 99/62 96 07/22/21 14:01 07/22/21 14:01 07/22/21 14:01 07/22/21 14:01 07/22/21 14:01 Oxygen Flow Rate (L/min) 2 Oxygen Delivery Method Room Air Weight: 99.2 kg Body Mass Index (BMI) 34.2 Intake & Output: Intake and Output for Last 24 Hours 07/20/21 07/21/21 07/22/21 23:59 23:59 23:59 Intake Total 603.75 / 603.75 700 / 940 480 / 480 Output Total 315 / 1015 2400 / 2400 800 / 800 Balance 288.75 / -411.25 -1700 / -1460 -320 / -320 Lab / Micro Data Result Diagrams: 07/21/21 04:35 07/21/21 04:35 Labs: Laboratory Results - last 24 hr 07/17/21 13:35: Hepatitis A Ab Total Negative 07/22/21 04:30: Troponin I High Sens 51 Micro: Microbiology 07/17/21 13:35 Swab (Method) Nasal Screen MRSA/MSSA - Final Radiography Diagnostic Testing: Radiology Impression Echocardiogram 07/22/21 08:00 Interpretation Summary Normal LV size. The estimated ejection fraction is 43 %. There is mild global hypokinesis of the left ventricle. Stage 1 diastolic dysfunction. Mild tricuspid valve insufficiency. Compared to previous study, the left ventricular systolic function has improved.. Ordering Physician: Ana Luna Referring Physician: Lashell Diallo Performed By: Karma Garza RDCS Physical Exam Const alert, oriented x3, no apparent distress and healthy appearing General Appearance: cooperative, well kempt and well developed Orientation / Consciousness: awake, oriented to person, oriented to place and oriented to time HEENT normocephalic, head/scalp atraumatic and moist oral mucous membranes Head and Scalp: normocephalic Eyes PERRL, EOMs intact bilaterally and conjunctivae normal Neck nuchal rigidity, supple, no JVD, thyroid normal and no carotid bruits General: trachea midline Resp normal respiratory effort, no retractions, no use of accessory muscles and clear to auscultation bilaterally Auscultation: Negative for rales, rhonchi or wheezes Cardio regular rate, regular rhythm, S1 normal heart sound, S2 normal heart sound, no murmurs, no rub and no gallops GI normal to inspection, nondistended, normoactive bowel sounds, soft to palpation, non-tender and non-distended Extremity no clubbing, cyanosis or edema Skin no rashes or lesions noted General Skin Exam: no breakdown Neuro oriented x3, CN's II-XII intact bilaterally, no focal motor deficits and no sensory deficits noted Sensorium / Orientation: awake and alert Speech: speech normal Psych affect normal Assessment & Plan Assessment/Plan (1) STEMI (ST elevation myocardial infarction): PLAN: 1. Status post STEMI (type I OH)-07/20/2021-patient appears stable for discharge at this time, cardiology recommended against the use of a beta-angela due to the patient's hypotension with carvedilol. Nitrates were also not recommended. Patient will be discharged home on Plavix and aspirin as well as a statin. 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 #5 GERD-patient will continue with a PPI Charges/Coding Visit Charges Inpatient E&M: 00269 Subs Hosp L3
== END 2021-07-22 15:28 | disposition home or self-care (01) | DRG 988 ==
LOC: SDC 17:09 → MS3 07-19 07:01 → ICU 07-21 22:37 → PCU 07-22 10:38
PROVIDERS: Anesthesiology; Family Medicine; Internal Medicine Interventional Cardiology; Physician Assistant; Admitting Provider Orthopaedic Surgery; PCP Family Medicine; Referring Provider Orthopaedic Surgery; Visit Provider Orthopaedic Surgery
PROC: 01NB0ZZ Release Lumbar Nerve, Open Approach (ICD-10-PCS; CPT 63030; principal; 2021-07-18 11:00)
DX: I21.09 ST elevation (STEMI) myocardial infarction involving other coronary artery of anterior wall (principal); M51.26 Other intervertebral disc displacement, lumbar region; I50.42 Chronic combined systolic (congestive) and diastolic (congestive) heart failure; I42.8 Other cardiomyopathies; I27.21 Secondary pulmonary arterial hypertension; I95.9 Hypotension, unspecified; I25.111 Atherosclerotic heart disease of native coronary artery with angina pectoris with documented spasm; K21.9 Gastro-esophageal reflux disease without esophagitis; M51.16 Intervertebral disc disorders with radiculopathy, lumbar region; Z79.02 Long term (current) use of antithrombotics/antiplatelets; Z79.82 Long term (current) use of aspirin; Z87.891 Personal history of nicotine dependence; Z95.0 Presence of cardiac pacemaker
CPT/HCPCS: 36415; 71045; 71046; 72020; 80048; 82962; 83735; 84484; 85025; 86703; 86706; 86708; 86803; 87081; 88304; 88311; 93005; 93306; 93458; 94762; 97161; 97530; 99152; 99251; 99406; J7030; J7040; J7120; Q9967; A4216; C1769; C1894; G0463; J1940; J2405; J3475; J3490

== ENCOUNTER → 2021-08-05 | Outpatient (CLI) | payer BC, SELFPAY ==
[2021-08-07 10:19] LABS: Hepatitis A AB, Total Negative (Negative)
== END | disposition home or self-care (01) ==
PROVIDERS: PCP Family Medicine; Visit Provider Orthopaedic Surgery
DX: Z01.818 Encounter for other preprocedural examination (principal)
CPT/HCPCS: 36415; 86708

== ENCOUNTER → 2021-10-11 | Outpatient (CLI) | payer BC, SELFPAY ==
--- NOTE | 2021-10-11 09:26 | ECHOD_ITS ---
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 The study was technically difficult. Definity deferred due to patient complaining of flank pain when previously used. Exam performed in department. Left Ventricle Normal LV size. The estimated ejection fraction is 50 %. No evidence for diastolic dysfunction. No regional wall motion abnormalities noted. Right Ventricle Normal RV size. Normal systolic function. Atria Normal left atrium. Normal right atrium. No doppler evidence for ASD. Mitral Valve There is no mitral valve stenosis. No mitral valve insufficiency. Tricuspid Valve There is no tricuspid stenosis. Trivial tricuspid valve insufficiency. Unable to estimate RV systolic pressure due to insufficient tricuspid regurgitant envelope. Aortic Valve Trisinus/trileaflet aortic valve. There is no aortic stenosis. No aortic valve insufficiency. Pulmonic Valve There is no pulmonic valvular stenosis. No pulmonic valve insufficiency. Great Vessels Normal aortic root. Pericardium/Pleural No pericardial effusion. MMode/2D Measurements & Calculations LAV(MOD-sp4): 36.1 ml LA A4 area: 16.0 cm2 RA A4 area: 14.5 cm2 Time Measurements MV dec time: 0.13 sec Doppler Measurements & Calculations MV E max carroll: 58.5 cm/sec Lat Peak E' Carroll: 11.5 cm/sec Med Peak E' Carroll: 8.9 cm/sec MV A max carroll: 73.1 cm/sec E/E' lat: 5.1 E/E' med: 6.6 MV E/A: 0.80 MV V2 max: 74.8 cm/sec MV dec slope: 438.7 cm/sec2 Ao V2 max: 110.2 cm/sec MV max P.2 mmHg Ao max P.9 mmHg MV V2 mean: 45.8 cm/sec Ao V2 mean: 79.6 cm/sec MV mean P.93 mmHg Ao mean P.9 mmHg MV V2 VTI: 17.2 cm Ao V2 VTI: 21.1 cm LV V1 max: 91.2 cm/sec PA V2 max: 80.1 cm/sec TR max carroll: 240.9 cm/sec LV V1 max P.3 mmHg PA V2 mean: 53.9 cm/sec TR max P.2 mmHg LV V1 mean P.9 mmHg LV V1 mean: 64.3 cm/sec LV V1 VTI: 18.0 cm ECHO/Echo Complete Interpretation Summary The estimated ejection fraction is 50 %. No evidence for diastolic dysfunction. Ordering Physician: SHAYY ROBERTO Referring Physician: SHAYY ROBERTO Performed By: Tina Cazares RCS
[2021-10-11 12:03] LABS: Anion Gap 5 (5-15); BUN 25 mg/dL (7-18); BUN/Creat Ratio 26.1 RATIO (10-20); Calcium,Total 9.2 mg/dL (8.5-10.1); Chloride 106 mmol/L (98-107); Creatinine, Serum 0.96 mg/dL (0.70-1.30); EST Glomerular Filtration Rate 88 mL/min (>60); Est Glom Filt Rate - Afr Amer 106 mL/min (>60); Glucose 158 mg/dL (74-106); Potassium 4.3 mmol/L (3.5-5.1); Sodium Level 139 mmol/L (136-145)
[2021-10-11 12:08] LABS: BNP,B-Type NATRIURETIC PEPTIDE 14.4 pg/mL (0-100)
== END | disposition home or self-care (01) ==
PROVIDERS: PCP Family Medicine
DX: I42.8 Other cardiomyopathies (principal); Z95.810 Presence of automatic (implantable) cardiac defibrillator; I10 Essential (primary) hypertension
CPT/HCPCS: 36415; 80048; 83880; 93306

== ENCOUNTER → 2024-09-23 | Outpatient (CLI) | payer OTHER, SELFPAY ==
[2024-09-23 15:55] LABS: Anion Gap 11 (5-15); BUN 21 mg/dL (4-19); BUN/Creat Ratio 23.6 RATIO (10-20); Calcium,Total 9.5 mg/dL (7.6-11.0); Carbon Dioxide 27.2 mmol/L (21.0-32.0); Chloride 103 mmol/L (98-108); Glucose 96 mg/dL (70-99); Potassium 4.9 mmol/L (3.3-5.1)
[2024-09-23 15:56] LABS: Pro- Brain NATRIURETIC PEPTIDE < 36 pg/mL (<=900)
== END | disposition home or self-care (01) ==
LOC: MTLAB 13:43
PROVIDERS: PCP Family Medicine
DX: I50.9 Heart failure, unspecified (principal)
CPT/HCPCS: 36415; 80048; 83880